=== PATIENT | male | born 1950 | race Caucasian/White ===

== ENCOUNTER 2016-11-21 22:39 | Emergency (ER) | payer MEDICARE ==
[~2016-11-21] VITALS: Ht 177.8 cm; Wt 80.0 kg
[~2016-11-21 22:39] MED LIST: LEVO.125 PO; LITH300C2 PO; PROP20TA3 PO; ROBA750T3 PO; WELL150T PO
[2016-11-21 22:41] VITALS: BP 184/94; PULSE 92; RESP 18; TEMP 98.3; O2SAT 96
[2016-11-22] MEDS ORDERED: LITH300C2 PO (00:26)
--- NOTE | 2016-11-22 00:48 | PD ---
HPI Chief Complaint: ENT Complaint Time Seen by Provider: 00:43 Travel History International Travel<30 days: No Contact w/Intl Traveler<30days: No Traveled to known affect area: No History of Present Illness HPI Patient comes in complaining of sore throat and possible Valium withdrawal. Patient states he been having a sore throat ongoing for approximately a week. Patient denies anything making it better or worse. Denies any fevers, difficulty swallowing nausea, vomiting, chest pain, shortness breath, neck pain , or headaches with this. Patient states he's been using [id number] medications with no improvement of symptoms. Patient states he was on Valium for 2 months last dose was 3 weeks ago and has felt like "crap" since. Patient states his daughter did research and is concerned that he might be going through benzo withdrawals. PFSH Past Medical History Autoimmune Disease: No Blood Disorders: No Bipolar Disorder: Yes Anxiety: Yes Depression: Yes Cancer: No Chemotherapy: No Diabetes: Yes Diminished Hearing: No Endocrine: No Glaucoma: No Hepatitis: Yes (Hep C) Immune Disorder: No Implanted Vascular Access Dvce: No Psychiatric: Yes (BIPOLAR) Immunizations Current: Yes Radiation Therapy: No Sickle Cell Disease: No Thyroid Disease: Yes Tetanus Vaccination: < 5 Years Influenza Vaccination: No PNEUMOCCOCAL Vaccine (Year): 2010 Past Surgical History Abdominal Surgery: No AICD: No Arteriovenous Shunt: No Cardiac Surgery: No Ear Surgery: No Endocrine Surgery: No Eye Surgery: No Genitourinary Surgery: No Insulin Pump: No Joint Replacement: No Oral Surgery: Yes (4 permanent teeth on top and 2 on top placed) Pacemaker: No Thoracic Surgery: No Tonsillectomy: Yes Social History Alcohol Use: No Tobacco Use: Yes (1/2PPD) Substance Use: Yes (HX OF HEROIN ABUSE) Allergies-Medications (Allergen,Severity, Reaction): Uncoded Allergies: NO NARCOTICS (Adverse Reaction, Severe, 02/11/15) PT HAS ADDICTION ISSUES Reported Meds & Prescriptions Reported Meds & Active Scripts Active Clonidine (Clonidine HCl) 0.1 Mg Tab 0.1 Mg PO BID PRN Reported [place] Carbonate 300 Mg Cap 300 Mg PO TID Review of Systems Except as stated in HPI: all other systems reviewed are Neg Physical Exam Narrative GENERAL: Well-developed, well nourished, in no acute distress, and non-ill appearing. SKIN: Warm and dry. HEAD: Atraumatic. Normocephalic. EYES: Pupils equal and round. EOMI. No scleral icterus. No injection or drainage. ENT: No nasal bleeding or discharge. Mucous membranes pink and moist. Tympanic membranes pearly ocasio bilaterally. Posterior pharynx of erythematous without exudate. Uvula is midline. No tenderness to facial sinus to palpation. Patient speaking in full sentences and swallowing own saliva. NECK: Trachea midline. No cervical lymphadenopathy. Supple. No nuclear rigidity. CARDIOVASCULAR: Regular rate and rhythm. No murmur appreciated. RESPIRATORY: No accessory muscle use. No respiratory distress. Clear to auscultation. Breath sounds equal bilaterally. MUSCULOSKELETAL: No obvious deformities. No clubbing. No cyanosis. No edema. Full range of motion. NEUROLOGICAL: Awake and alert. No obvious cranial nerve deficits. Motor grossly within normal limits. Normal speech. PSYCHIATRIC: Appropriate mood and affect; insight and judgment normal. Data Data Last Documented VS Vital Signs Date Time Temp Pulse Resp B/P Pulse Ox O2 Delivery O2 Flow Rate FiO2 11/22/16 00:26 16 11/21/16 22:41 98.3 92 184/94 96 Orders Group A Rapid Strep Screen (11/22/16 00:25) Strep Culture (Group A) (11/22/16 00:45) MDM Medical Decision Making Medical Screen Exam Complete: Yes Emergency Medical Condition: Yes Differential Diagnosis Strep pharyngitis, viral pharyngitis, allergies, other Narrative Course Patient looks great, non-ill appearing. The patient is tolerating fluids and is well hydrated. Appears viral pharyngitis with viral symptom complex. No clinical evidence by history or evaluation to suspect meningitis and/or sepsis. There was no evidence to suggest peritonsillar abscess or retropharyngeal abscess. I discussed with the patient, diagnosis, plan of care and to follow up with the patients primary physician. The patient was instructed to return if the worsens in anyway, especially if not tolerating fluids, increased pain or swelling, difficulty swallowing or breathing, or as needed. The patient agreed with plan. Patient in no obvious distress upon re-evaluation. All pertinent laboratory result(s) discussed with patient. Discussed patient with Dr. Jarvis prior to discharge regarding concerns of possible benzo withdrawal. Dr. Emmanuel saw and evaluate the patient and wrote him a prescription for clonidine. Any questions/concerns in reference to patient diagnosis/condition discussed and clarified prior to patient's discharge. Reinforced sheer importance of close follow up with patient's primary physician or primary care clinic. Instructed patient to return to ED immediately, if symptoms return/worsen. Pt showed understanding of above instructions. Further instructions and recommendations were detailed in discharge paperwork. Pt ambulated without difficulty out of ED at discharge. Diagnosis Primary Impression: Pharyngitis Qualified Code: J02.9 - Pharyngitis, unspecified etiology Additional Impression: Anxiety Referrals: Ear / Nose / Throat Specialist Primary Care Physician Analy [facility] Patient Instructions: Anxiety (ED), General Instructions, Pharyngitis (ED) Additional Instructions: Follow-up with your primary care physician, ENT, and [facility] this week for reevaluation. Take all medication as prescribed. Return to the emergency department if symptoms get worse. Med/Other Pt SpecificInfo: Prescription(s) given Scripts Clonidine 0.1 Mg Tab0.1 Mg PO BID PRN (ANXIETY AND/OR AGITATION) #20 TAB Ref 0 Prov:Rupesh Jarvis MD 11/22/16 Disposition: 01 DISCHARGE HOME Condition: Stable Conor Jacinto Nov 22, 2016 00:48
[2016-11-22] MEDS ORDERED: CLON0.1T PO (02:05)
== END 2016-11-22 02:18 | disposition home or self-care (01) ==
LOC: NEPB 22:39
DX: J02.9 Acute pharyngitis, unspecified (principal); E11.9 Type 2 diabetes mellitus without complications; B19.20 Unspecified viral hepatitis C without hepatic coma; E07.9 Disorder of thyroid, unspecified; F17.210 Nicotine dependence, cigarettes, uncomplicated
CPT/HCPCS: 87081; 87880; 99283

== ENCOUNTER 2017-07-29 22:32 | Emergency (ER) | payer MEDICARE, MEDICAID ==
[~2017-07-29] VITALS: Ht 177.8 cm; Wt 77.0 kg
[~2017-07-29 22:32] MED LIST changes: +CLON0.1T PO; -LEVO.125 PO; -PROP20TA3 PO; -ROBA750T3 PO; -WELL150T PO
[2017-07-29 23:13] VITALS: BP 138/84; PULSE 90; RESP 15; TEMP 98.1; O2SAT 100
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
[2017-07-30] MEDS ORDERED: LIDOCAINE 1%/EPINEPHrine 1:100,000 SOLN 50 ML VIAL INFIL ONE (00:15)
--- NOTE | 2017-07-30 00:28 | RADRPT ---
EXAM DATE/TIME: 07/30/2017 00:06 [place] COMPARISON: CT BRAIN W/O CONTRAST, August 05, 2014, 17:29. CT BRAIN W/O CONTRAST, October 15, 2014, 19:49. INDICATIONS : Trauma, fall. RADIATION DOSE: 56.35 CTDIvol (mGy) MEDICAL HISTORY : Hypertension. Diabetes mellitus type 2. Hepatitis C. SURGICAL HISTORY : None. ENCOUNTER: Initial ACUITY: 1 day PAIN SCALE: 4/10 LOCATION: cranial TECHNIQUE: Multiple contiguous axial images were obtained of the head. Using automated exposure control and adj ustment of the mA and/or kV according to patient size, radiation dose was kept as low as reasonably a chievable to obtain optimal diagnostic quality images. DICOM format image data is available electro nically for review and comparison. FINDINGS: CEREBRUM: The ventricles are normal for age. No evidence of midline shift, mass lesion, hemorrhage or acute in farction. No extra-axial fluid collections are seen. POSTERIOR FOSSA: The cerebellum and brainstem are intact. The 4th ventricle is midline. The cerebellopontine angle i s unremarkable. EXTRACRANIAL: Focal soft tissue laceration and hematoma seen in the right superolateral periorbital region. 2.2 cm partly calcified mass in the upper right jugulodigastric region is long-term stable. 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 SKULL: The calvaria is intact. No evidence of skull fracture. CONCLUSION: 1. No bleed or other acute intracranial abnormality. 2. Right supraorbital soft tissue laceration and small hematoma. 3. Long-term stable partly calcified right jugulodigastric mass. Tahir Keys MD on July 30, 2017 at 0:24 Board Certified Radiologist. This report was verified electronically.
== END 2017-07-30 01:05 | disposition home or self-care (01) ==
LOC: NEPD 22:32
DX: S01.81XA Laceration without foreign body of other part of head, initial encounter (principal); F03.90 Unspecified dementia, unspecified severity, without behavioral disturbance, psychotic disturbance, mood disturbance, and anxiety; F31.9 Bipolar disorder, unspecified; F41.9 Anxiety disorder, unspecified; I10 Essential (primary) hypertension; E11.9 Type 2 diabetes mellitus without complications; E07.9 Disorder of thyroid, unspecified; W01.198A Fall on same level from slipping, tripping and stumbling with subsequent striking against other object, initial encounter; Z86.19 Personal history of other infectious and parasitic diseases
CPT/HCPCS: 12013; 70450

== ENCOUNTER 2017-09-10 15:27 | Emergency (ER) | payer MEDICARE, MEDICAID ==
[~2017-09-10] VITALS: Ht 177.8 cm; Wt 78.1 kg
[2017-09-10 15:52] VITALS: BP 179/95; PULSE 68; RESP 16; TEMP 98.3; O2SAT 97
[2017-09-10] MEDS ORDERED: BACT800T5 PO (16:34)
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
[2017-09-15] MEDS ORDERED: WELLTAB39 PO (08:54)
[2017-09-15] MEDS ORDERED: LEVO25TA39 PO (08:56)
== END 2017-09-10 16:51 | disposition home or self-care (01) ==
LOC: PHEFT 15:27
DX: L02.413 Cutaneous abscess of right upper limb (principal); E11.9 Type 2 diabetes mellitus without complications; I10 Essential (primary) hypertension; E07.9 Disorder of thyroid, unspecified; G30.9 Alzheimer's disease, unspecified; F02.80 Dementia in other diseases classified elsewhere, unspecified severity, without behavioral disturbance, psychotic disturbance, mood disturbance, and anxiety; F31.9 Bipolar disorder, unspecified; Z79.82 Long term (current) use of aspirin; Z86.19 Personal history of other infectious and parasitic diseases
CPT/HCPCS: 99283

== ENCOUNTER → 2017-09-15 | Day surgery (SDC) | payer MEDICARE, MEDICAID ==
--- NOTE | 2017-09-14 18:30 | MH ---
cc: JEFF ROWAN DATE OF ADMISSION 09/15/2017 IDENTIFICATION A 67-year-old with base of tongue neoplasm for direct laryngoscopy biopsy. PAST MEDICAL HISTORY Unremarkable PAST SURGICAL HISTORY Unremarkable REVIEW OF SYSTEMS Unremarkable FAMILY HISTORY AND SOCIAL HISTORY Unremarkable PHYSICAL EXAMINATION GENERAL: Well-appearing patient no acute distress noted. HEENT: Exam revealed base of tongue neoplasm. LUNGS: Clear. HEART: Regular rate and rhythm. ABDOMEN: Soft, nontender. EXTREMITIES: Without cyanosis, clubbing or edema. NEUROLOGIC: Alert, oriented, nonfocal neurologic exam. 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 Instructed in the method of surgery and possible complication include anesthetic complications, cardiac difficulty, pulmonary difficulty, stroke or even . Surgical complications bleeding, infection, risk of transfusion, risk of injury to base of tongue with bleeding, loss of airway with tracheostomy. The patient appeared to agree, accept and understand above-mentioned risks and benefits. In addition no guarantees or warranties regarding outcome were given. We will therefore proceed with surgery. MD ORI Felder/ANGELES /5:36 PM /6:17 PM
[~2017-09-15] VITALS: Ht 177.8 cm; Wt 74.1 kg
[~2017-09-15] MED LIST changes: +BACT800T5 PO; +CHLORHEXIDINE GLUCONATE 2 % 1 PACK (2 CLOTHS) TOPICAL PRN; +DEXAMETHASONE SOD PHOS 4 MG/ML VIAL IV ONE; +DO NOT ADM ANY ANTICOAGULANT DRUGS PRN; +LACTATED RINGER'S 1000 ML IV PRN; +LEVO25TA39 PO; +LIDOCAINE HCL 1% PF 5 ML SYRINGE OTHER ONE; +METOPROLOL TARTRATE 25 MG TAB PO PRN; +ONDANSETRON HCL 4 MG/2 ML VIAL IV ONE; +POVIDONE IODINE 5% (ANTISEPSIS KIT) 4 APPLICATIONS EACH NARE PRN; +PROPOFOL 200 MG/20 ML AMP IV ONE; +SODIUM CHLORID 0.9% 500 ML IV PRN; +SUCCINYLCHOLINE CHLORIDE 100 MG/5 ML SYRINGE IV PUSH ONE; +WELLTAB39 PO
[2017-09-15 12:16] VITALS: BP 142/75; PULSE 64; RESP 18; O2SAT 100
--- NOTE | 2017-09-15 16:00 | EKG ---
Date Performed: 09/15/2017 Time Performed: 09:19:15 PTAGE: 67 years EKG: SINUS BRADYCARDIA BORDERLINE ECG PREVIOUS TRACING : 06/26/2014 09.15 Since the prior tracing, nonspecific ST-T wave changes have resolved. DOCTOR: Jami Jeronimo Interpretating Date/Time 09/15/2017 15:59:53
--- NOTE | 2017-09-16 15:54 | MP ---
cc: JEFF ROWAN DATE OF OPERATION 09/15/2017 PREOPERATIVE DIAGNOSIS Base of tongue mass. POSTOPERATIVE DIAGNOSIS Base of tongue mass. PROCEDURE Direct laryngoscopy and biopsy. ANESTHESIA General. ESTIMATED BLOOD LOSS Minimal. COMPLICATIONS No complications. OPERATING SURGEON Dr. Rowan. OPERATION Prepped and draped in usual fashion. Once the patient was intubated the GlideScope was used to gain access to the base of the tongue. A large necrotic mass with ulceration was noted. The mass was biopsied multiple times with upbiting forceps with the GlideScope visualization. No other lesions were noted. The neck was palpated, no masses. Patient tolerated procedure well. MD ORI Felder/DEISY /7:43 AM /3:40 PM
== END | disposition home or self-care (01) ==
LOC: HSDC 07:59
PROVIDERS: ATTEND Specialist
DX: C01 Malignant neoplasm of base of tongue (principal); I10 Essential (primary) hypertension; R94.31 Abnormal electrocardiogram [ECG] [EKG]
CPT/HCPCS: 88305; 93005; J0330; J1100; J2405; J3010

== ENCOUNTER 2018-01-13 21:01 | Emergency (ER) | payer MEDICARE, MEDICAID ==
[~2018-01-13] VITALS: Ht 172.7 cm; Wt 60.0 kg
[~2018-01-13 21:01] MED LIST changes: -CHLORHEXIDINE GLUCONATE 2 % 1 PACK (2 CLOTHS) TOPICAL PRN; -CLON0.1T PO; -DEXAMETHASONE SOD PHOS 4 MG/ML VIAL IV ONE; -DO NOT ADM ANY ANTICOAGULANT DRUGS PRN; -LACTATED RINGER'S 1000 ML IV PRN; -LIDOCAINE HCL 1% PF 5 ML SYRINGE OTHER ONE; -METOPROLOL TARTRATE 25 MG TAB PO PRN; -ONDANSETRON HCL 4 MG/2 ML VIAL IV ONE; -POVIDONE IODINE 5% (ANTISEPSIS KIT) 4 APPLICATIONS EACH NARE PRN; -PROPOFOL 200 MG/20 ML AMP IV ONE; -SODIUM CHLORID 0.9% 500 ML IV PRN; -SUCCINYLCHOLINE CHLORIDE 100 MG/5 ML SYRINGE IV PUSH ONE
[2018-01-13 21:21] VITALS: BP 132/59; PULSE 67; RESP 16; TEMP 98.5; O2SAT 100
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
== END 2018-01-13 22:18 | disposition home or self-care (01) ==
LOC: NEDAMB 21:01
DX: F11.20 Opioid dependence, uncomplicated (principal); C02.9 Malignant neoplasm of tongue, unspecified; G30.9 Alzheimer's disease, unspecified; F02.80 Dementia in other diseases classified elsewhere, unspecified severity, without behavioral disturbance, psychotic disturbance, mood disturbance, and anxiety; F31.9 Bipolar disorder, unspecified; F41.9 Anxiety disorder, unspecified; B19.20 Unspecified viral hepatitis C without hepatic coma; I10 Essential (primary) hypertension; Z79.82 Long term (current) use of aspirin; Z86.73 Personal history of transient ischemic attack (TIA), and cerebral infarction without residual deficits
CPT/HCPCS: 99282

== ENCOUNTER 2018-01-15 10:41 | Inpatient (IN) | payer MEDICARE, MEDICAID ==
[~2018-01-15] VITALS: Ht 175.3 cm; Wt 60.0 kg
[2018-01-15 10:51] VITALS: BP 107/57; PULSE 77; RESP 18; TEMP 98.2; O2SAT 83
[2018-01-15] MEDS ORDERED: LIDOCAINE VISCOUS 2% SOLN 15 ML UDC PO ONE (11:30)
[2018-01-15] MEDS ORDERED: MORPHINE SULFATE 4 MG/ML INJ IV PUSH ONE ×2 (11:30→14:30)
[2018-01-15] MEDS ORDERED: OXYC-396 PO (11:46)
[2018-01-15] MEDS ORDERED: MAGICADU2 SWISH-SWAL (11:46)
[2018-01-15] MEDS ORDERED: ZOLO50TA PO (11:46)
[2018-01-15] MEDS ORDERED: NEUR400C PO (11:46)
[2018-01-15] MEDS ORDERED: PLAV75TA29 PO (11:46)
[2018-01-15] MEDS ORDERED: LITH450T PO (11:46)
[2018-01-15] MEDS ORDERED: HALO5TAB PO (11:46)
[2018-01-15] MEDS ORDERED: BUPR8SUB SL (11:46)
[2018-01-15 12:35] VITALS: BP 139/68; PULSE 68; RESP 18; O2SAT 100
[2018-01-15 12:42] LABS: AUTOMATED NEUTROPHIL # 1.6 TH/MM3 (1.8-7.7); BASOPHIL % 0.3 % (0.0-2.0); EOSINOPHIL % 0.4 % (0.0-4.0); HEMATOCRIT 22.9 % (39.0-51.0); LYMPH % 16.5 % (9.0-44.0); LYMPHOCYTE # 0.4 TH/MM3 (1.0-4.8); MEAN CELL VOLUME 100.1 FL (80.0-100.0); MONO % 10.8 % (0.0-8.0); MONOCYTE # 0.2 TH/MM3 (0-0.9); PLATELET COUNT 78 TH/MM3 (150-450); RED BLOOD COUNT 2.29 MIL/MM3 (4.50-5.90); RED CELL DISTRIBUTION WIDTH 23.4 % (11.6-17.2); WHITE BLOOD COUNT 2.2 TH/MM3 (4.0-11.0)
[2018-01-15 13:05] LABS: ALBUMIN 3.7 GM/DL (3.4-5.0); ALT (GPT) 19 U/L (12-78); AST (GOT) 14 U/L (15-37); BICARBONATE 26.6 MEQ/L (21.0-32.0); BLOOD UREA NITROGEN 22 MG/DL (7-18); CALCIUM 10.7 MG/DL (8.5-10.1); CHLORIDE 109 MEQ/L (98-107); CREATININE 0.96 MG/DL (0.60-1.30); GLOMERULAR FILTRATION RATE 78 ML/MIN (>89); GLUCOSE,RANDOM 98 MG/DL (74-106); SODIUM (NA) 141 MEQ/L (136-145)
[2018-01-15 13:07] LABS: ALKALINE PHOSPHATASE 72 U/L (45-117); TOTAL BILIRUBIN ADULT 0.6 MG/DL (0.2-1.0); TOTAL PROTEIN 7.2 GM/DL (6.4-8.2)
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
[2018-01-15 14:56] VITALS: BP 117/56; PULSE 71; RESP 18; O2SAT 99
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
[2018-01-15] MEDS ORDERED: SODIUM CHLORIDE 0.9% FLUSH 10 ML FLUSH IV FLUSH PRN (16:30)
[2018-01-15] MEDS ORDERED: ONDANSETRON HCL 4 MG/2 ML VIAL IVP PRN (16:30)
[2018-01-15] MEDS ORDERED: NALOXONE HCL 0.4 MG/ML AMP IV PUSH PRN (16:30)
[2018-01-15] MEDS ORDERED: ACETAMINOPHEN 325 MG TAB PO PRN (16:30)
[2018-01-15] MEDS: ENOXAPARIN SODIUM 40 MG/0.4 ML SYRINGE SQ SCH (17:29)
[2018-01-15 17:31] VITALS: BP 163/70; PULSE 80; RESP 18; O2SAT 95
[2018-01-15] MEDS ORDERED: MORPHINE SULFATE 2 MG/ML SYRINGE IV PUSH PRN (18:45)
[2018-01-15] MEDS: MORPHINE SULFATE 2 MG/ML SYRINGE IV PUSH PRN ×2 (19:22→22:18)
[2018-01-15] MEDS: SODIUM CHLORIDE 0.9% FLUSH 10 ML FLUSH IV FLUSH SCH (19:23)
[2018-01-15 20:25] VITALS: BP 161/75; PULSE 70; RESP 17; TEMP 98.9; O2SAT 98
[2018-01-15] MEDS: HALOPERIDOL 5 MG TAB PO SCH (20:41)
[2018-01-15] MEDS: LITHIUM CARBONATE 450 MG CONTROLLED RELEASE TAB PO SCH (20:41)
[2018-01-15] MEDS: NYSTAT/DIPHENHY/LIDO MOUTHWASH (Adult) 120ML SWISH-SWAL SCH (20:41)
[2018-01-15] MEDS: BUPRENORPHINE HCL 8 MG SUBLINGUAL TAB SL SCH (20:41)
[2018-01-15] MEDS: GABAPENTIN 400 MG CAP PO SCH (20:41)
[2018-01-16 00:15] VITALS: BP 96/50; PULSE 55; RESP 17; TEMP 97.7; O2SAT 99
[2018-01-16] MEDS: MORPHINE SULFATE 2 MG/ML SYRINGE IV PUSH PRN ×5 (03:17→16:46)
[2018-01-16 04:15] VITALS: BP 109/56; PULSE 61; RESP 16; TEMP 97.7; O2SAT 98
[2018-01-16] MEDS: NYSTAT/DIPHENHY/LIDO MOUTHWASH (Adult) 120ML SWISH-SWAL SCH ×4 (06:33→22:34)
[2018-01-16 08:00] VITALS: BP 119/62; PULSE 56; RESP 19; TEMP 97.7; O2SAT 99
[2018-01-16 08:58] LABS: AUTOMATED NEUTROPHIL # 0.6 TH/MM3 (1.8-7.7); BASOPHIL % 0.1 % (0.0-2.0); EOSINOPHIL % 1.1 % (0.0-4.0); HEMATOCRIT 22.4 % (39.0-51.0); HEMOGLOBIN 7.8 GM/DL (13.0-17.0); LYMPHOCYTE # 0.7 TH/MM3 (1.0-4.8); MEAN CORPUSCULAR HEMOGLOBIN 35.5 PG (27.0-34.0); MEAN CORPUSCULAR HGB CONC 34.7 % (32.0-36.0); MEAN PLATELET VOLUME 9.1 FL (7.0-11.0); MONO % 12.6 % (0.0-8.0); MONOCYTE # 0.2 TH/MM3 (0-0.9); NEUT % 40.2 % (16.0-70.0); PLATELET COUNT 72 TH/MM3 (150-450); RED BLOOD COUNT 2.19 MIL/MM3 (4.50-5.90); RED CELL DISTRIBUTION WIDTH 23.8 % (11.6-17.2); WHITE BLOOD COUNT 1.4 TH/MM3 (4.0-11.0)
[2018-01-16] MEDS: HALOPERIDOL 5 MG TAB PO SCH ×2 (09:00→22:35)
[2018-01-16] MEDS: CLOPIDOGREL 75 MG TAB PO SCH (09:01)
[2018-01-16] MEDS: GABAPENTIN 400 MG CAP PO SCH ×2 (09:01→22:35)
[2018-01-16] MEDS: BUPRENORPHINE HCL 8 MG SUBLINGUAL TAB SL SCH (09:01)
[2018-01-16] MEDS: LITHIUM CARBONATE 450 MG CONTROLLED RELEASE TAB PO SCH ×2 (09:03→22:35)
[2018-01-16] MEDS: SERTRALINE HCL 50 MG TAB PO SCH (09:03)
[2018-01-16] MEDS: SODIUM CHLORIDE 0.9% FLUSH 10 ML FLUSH IV FLUSH SCH ×2 (09:04→22:36)
[2018-01-16 09:15] LABS: ALBUMIN 3.4 GM/DL (3.4-5.0); AST (GOT) 14 U/L (15-37); BICARBONATE 27.4 MEQ/L (21.0-32.0); BLOOD UREA NITROGEN 19 MG/DL (7-18); CALCIUM 10.7 MG/DL (8.5-10.1); CHLORIDE 111 MEQ/L (98-107); CREATININE 0.91 MG/DL (0.60-1.30); GLOMERULAR FILTRATION RATE 83 ML/MIN (>89); GLUCOSE,RANDOM 77 MG/DL (74-106); SODIUM (NA) 143 MEQ/L (136-145)
[2018-01-16 09:16] LABS: ALT (GPT) 16 U/L (12-78)
[2018-01-16 09:19] LABS: ALKALINE PHOSPHATASE 66 U/L (45-117); TOTAL BILIRUBIN ADULT 0.4 MG/DL (0.2-1.0); TOTAL PROTEIN 6.8 GM/DL (6.4-8.2)
[2018-01-16 10:15] LABS: BANDS 1 % (0-6); LYMPHOCYTES 54 % (9-44); MONOCYTES 16 % (0-8); POLYS (SEG NEUTROPHILS) 29 % (16-70)
[2018-01-16 10:19] LABS: NEUTROPHIL # MANUAL DIFF 0.4 TH/MM3 (1.8-7.7)
[2018-01-16 12:00] VITALS: BP 107/55; PULSE 59; RESP 17; TEMP 98.2; O2SAT 99
--- NOTE | 2018-01-16 12:10 | HHI.HP ---
[facility] Service Family Medicine Primary Care Physician Colin Mcgarry M.D. Admission Diagnosis intractable pain, difficulty swallowing Diagnoses: (1) Intractable pain Diagnosis: Principal (2) Radiation burn Diagnosis: Principal (3) Bipolar affective disorder, rapid cycling Diagnosis: Principal (4) FEN Diagnosis: Principal International Travel<30 Days: No Contact w/Intl Traveler<30days: No Known Affected Area: No History of Present Illness Mr. Lewis is a 68-year-old white male with a past medical history of bipolar disorder and oropharyngeal cancer presenting to the ED due to pain in his tongue and throat. He was first diagnosed with oropharyngeal cancer in September. He just finished 3 months of chemotherapy and radiation 2 days ago per his report. He states that his mouth is on fire from the radiation gomez. Specifically located on his tongue and in the back of his throat. Dr. Walton is his radiation oncologist and Dr. De Paz is his oncologist for his chemotherapy. He states that he first went to the hospital in [facility] and then was sent here. He is currently awaiting a special compounded formula for his gomez that is to be picked up on Tuesday from some pharmacy. He usually has a full liquid diet. He is a difficult historian because he doesn't follow a clear thread in giving the history so some history is obtained from the chart. His speech is somewhat pressured at this time. "I called Lionel and Lionel, you know who that is from the radio and I'm going to be laughing at you all." He couldn't remember his brother's phone number where he had been living recently. He reports being a narcotics addict in the past but having long periods where he was clean. he complains about pain in his throat and pain with eating and has been offered a PEG tube multiple times but keeps refusing. "Those things get infected! Have you seen those get infected?" Right now with his pain, there is not much that can be done except strong pain meds like narcotics plus topical treatments. Mr Lewis wants narcotics at this point and feels better with his pain. He probably got much worse because he stopped his pain meds. Unfortunately, he is stuck with a very painful throat for weeks. He was trying to come off narcotics over the past week and has been having more pain since then. He was last hospitalized for Psychiatric problems in October. He was on multiple meds. Have consulted Psychiatry as he seems like he could benefit from some adjustment in his meds right now. 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 It was repeatedly explained that he was not being escorted out of the hospital by security right now but he is very angry with the ED staff that "lies all the time." "I'm writing a big report about everything that happened and you will all be in trouble." Review of Systems ROS Limitations: Poor Historian Gastrointestinal: COMPLAINS OF: Difficulty Swallowing, Anorexia, DENIES: Diarrhea Psychiatric: COMPLAINS OF: Confusion, Agitation Other ROS Limitations: Uncooperative, Combative Constitutional: DENIES: Fever, Chills Ears, nose, mouth, throat: COMPLAINS OF: Throat pain Past Family Social History Past Medical History Hearing loss Alzheimer disease Bipolar disorder Hepatitis C Benign brain tumor Past Surgical History tonsillectomy Allergies: Coded Allergies: No Known Allergies (Unverified , 01/13/18) Family History Long family history of bipolar and schizophrenia Social History History of heroin and IV drug abuse Physical Exam Vital Signs Vital Signs Date Time Temp Pulse Resp B/P (MAP) Pulse Ox O2 Delivery O2 Flow Rate FiO2 01/16/18 08:00 97.7 56 19 119/62 (81) 99 01/16/18 04:15 97.7 61 16 109/56 (73) 98 01/16/18 00:15 97.7 55 17 96/50 (65) 99 01/15/18 20:25 98.9 70 17 161/75 (103) 98 01/15/18 18:47 01/15/18 17:31 80 18 163/70 (101) 95 Room Air 01/15/18 14:56 71 18 117/56 (76) 99 Room Air 01/15/18 12:35 68 18 139/68 (91) 100 Room Air Physical Exam GENERAL: This is a cachectic white male patient, angry and cursing in the ED. SKIN: No rashes, ecchymoses or lesions. Cool and dry. HEAD: Atraumatic. Normocephalic. EYES: Pupils equal round and reactive. Extraocular motions intact. No scleral icterus. No injection or drainage. ENT: Nose without bleeding, purulent drainage or septal hematoma. Throat without erythema, tonsillar hypertrophy or exudate. Uvula midline. Airway patent. Lesion underneath tongue, unable to assess lesion at back of throat NECK: Trachea midline. No JVD or lymphadenopathy. Supple, nontender CARDIOVASCULAR: Regular rate and rhythm without murmurs, gallops, or rubs. RESPIRATORY: Clear to auscultation. Breath sounds equal bilaterally. No wheezes , rales, or rhonchi. GASTROINTESTINAL: Abdomen soft, non-tender, nondistended. No hepato-splenomegaly , or palpable masses. No guarding. MUSCULOSKELETAL: Extremities without clubbing, cyanosis, or edema. No joint tenderness, effusion, or edema noted. No calf tenderness. NEUROLOGICAL: Awake and alert. Motor and sensory grossly within normal limits. pressured speech. Laboratory Laboratory Tests Test 01/15/18 12:30 01/16/18 08:17 White Blood Count 2.2 1.4 Red Blood Count 2.29 2.19 Hemoglobin 8.0 7.8 Hematocrit 22.9 22.4 Mean Corpuscular Volume 100.1 102.0 Mean Corpuscular Hemoglobin 35.0 35.5 Mean Corpuscular Hemoglobin Concent 35.0 34.7 Red Cell Distribution Width 23.4 23.8 Platelet Count 78 72 Mean Platelet Volume 9.0 9.1 Neutrophils (%) (Auto) 72.0 40.2 Lymphocytes (%) (Auto) 16.5 46.0 Monocytes (%) (Auto) 10.8 12.6 Eosinophils (%) (Auto) 0.4 1.1 Basophils (%) (Auto) 0.3 0.1 Neutrophils # (Auto) 1.6 0.6 Lymphocytes # (Auto) 0.4 0.7 Monocytes # (Auto) 0.2 0.2 Eosinophils # (Auto) 0.0 0.0 Basophils # (Auto) 0.0 0.0 CBC Comment AUTO DIFF AUTO DIFF Differential Comment AUTO DIFF CONFIRMED FINAL DIFF MANUAL Platelet Estimate LOW LOW Platelet Morphology Comment NORMAL NORMAL Blood Urea Nitrogen 22 19 Creatinine 0.96 0.91 Random Glucose 98 77 Total Protein 7.2 6.8 Albumin 3.7 3.4 Calcium Level 10.7 10.7 Alkaline Phosphatase 72 66 Aspartate Amino Transf (AST/SGOT) 14 14 Alanine Aminotransferase (ALT/SGPT) 19 16 Total Bilirubin 0.6 0.4 Sodium Level 141 143 Potassium Level 3.8 4.6 Chloride Level 109 111 Carbon Dioxide Level 26.6 27.4 Anion Gap 5 5 Estimat Glomerular Filtration Rate 78 83 Differential Total Cells Counted 100 Neutrophils % (Manual) 29 Band Neutrophils % 1 Lymphocytes % 54 Monocytes % 16 Neutrophils # (Manual) 0.4 Result Diagram: 01/16/1881601/16/18816 Caprini VTE Risk Assessment Caprini VTE Risk Assessment: Mod/High Risk (score >= 2) Caprini Risk Assessment Model Point Value = 1 Point Value = 2 Point Value = 3 Point Value = 5 Age 41-60 Minor surgery BMI > 25 kg/m2 Swollen legs Varicose veins or History of unexplained or recurrent spontaneous Oral contraceptives or hormone replacement Sepsis (< 1 month) Serious lung disease, including pneumonia (< 1 month) Abnormal pulmonary function Acute myocardial infarction Congestive heart failure (< 1 month) History of inflammatory bowel disease Medical patient at bed rest Age 61-74 Arthroscopic surgery Major open surgery (> 45 min) Laparoscopic surgery (> 45 min) Malignancy Confined to bed (> 72 hours) Immobilizing plaster cast Central venous access Age >= 75 History of VTE Family history of VTE Factor V Leiden Prothrombin [id number] Lupus anticoagulant Anticardiolipin antibodies Elevated serum homocysteine Heparin-induced thrombocytopenia Other congenital or acquired thrombophilia Stroke (< 1 month) Elective arthroplasty Hip, pelvis, or leg fracture Acute spinal cord injury (< 1 month) Prophylaxis Regimen Total Risk Factor Score Risk Level Prophylaxis Regimen 0-1 Low Early ambulation 2 Moderate Order ONE of the following: *Sequential Compression Device (SCD) *Heparin 5000 units SQ BID 3-4 Higher Order ONE of the following medications: *Heparin 5000 units SQ TID *Enoxaparin/Lovenox 40 mg SQ daily (WT < 150 kg, CrCl > 30 mL/min) *Enoxaparin/Lovenox 30 mg SQ daily (WT < 150 kg, CrCl > 10-29 mL/min) *Enoxaparin/Lovenox 30 mg SQ BID (WT < 150 kg, CrCl > 30 mL/min) AND/OR *Sequential Compression Device (SCD) 5 or more Highest Order ONE of the following medications: *Heparin 5000 units SQ TID (Preferred with Epidurals) *Enoxaparin/Lovenox 40 mg SQ daily (WT < 150 kg, CrCl > 30 mL/min) *Enoxaparin/Lovenox 30 mg SQ daily (WT < 150 kg, CrCl > 10-29 mL/min) *Enoxaparin/Lovenox 30 mg SQ BID (WT < 150 kg, CrCl > 30 mL/min) AND *Sequential Compression Device (SCD) Assessment and Plan Assessment and Plan 68-year-old white male with past medical history of oropharyngeal cancer presenting with intractable throat/tongue pain. Will be admitted to our inpatient service for pain control and management as well as help with his diet to keep him from losing more weight Problem List: (1) Intractable pain ICD Codes: R52 - Pain, unspecified Status: Acute Plan: Patient presented with intractable pain from radiation gomez to the throat and along. He finishes radiation therapy 2 days ago. Pain management with IV morphine and Magic mouthwash he refuses any feeding tube which could help him keep his weight stable. will work on a po regimin for pain control until he is stable and improved (2) Radiation burn ICD Codes: T30.0 - Burn of unspecified body region, unspecified degree Status: Acute Plan: Patient just finished undergoing 3 months of chemotherapy and radiation therapy. -Consult radiation oncology, patient is known to Dr. Walton -Consult medical oncology, patient is known to Dr. De Paz. he is neutropenic (3) Bipolar affective disorder, rapid cycling ICD Codes: F31.9 - Bipolar affective disorder, rapid cycling Status: Chronic Plan: Patient with history of bipolar disorder with a previous hospitalization in October 2014. -Continue at home medication of haloperidol 5 mg p.o. twice daily, lithium 450 mg p.o. twice daily, gabapentin 400 mg p.o. twice daily, sertraline 50 mg p.o. daily -Consult psychiatry, appreciate recommendations, due to patient's aggressive behavior may be underlying depressive episode vs worsening bipolar (4) FEN Status: Acute Plan: Fluids: tolerating PO Electrolytes: monitor and replete as needed Nutrition: Full liquid diet DVT Prophylaxis: Early ambulation. Lovenox 40mg subQ q24hr GI Prophylaxis: None indicated at this time Pain management: See above Shahrzad Sanon MD Jan 16, 2018 12:10
--- NOTE | 2018-01-16 12:12 | MB ---
cc: Tacho Monae MD DATE: 01/16/2018 [facility] #: [id number] REASON FOR CONSULTATION: This gentleman completed external beam radiation treatment with chemotherapy for a head and neck cancer on 01/05/2018 and he was admitted to the hospital complaining of severe oropharyngeal pain and an inability to manage it. Since being in the hospital with conservative management and IV fluids, he appears to be doing much better. He has declined placement of a PEG tube. HISTORY OF PRESENT ILLNESS: This gentleman indicates that he has had a manic depressive disorder for years. His pain in his throat was poorly managed on an outpatient basis and it would appear that he needed some relief. Nevertheless, he is declining consideration for a PEG tube and wants to manage on his own. He believes that they are bringing him an oropharyngeal solution to rinse and swallow and he is hopeful that this will help his symptomatology. PAST MEDICAL AND SURGICAL HISTORY: 1. 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 2. Alzheimer's. 3. Hepatitis C. 4. Vasectomy. 5. Bipolar disorder. MEDICATIONS: Prior to initiation of treatment included -[place] and Wellbutrin. ALLERGIES: NONE KNOWN. REVIEW OF SYSTEMS: This gentleman complains of significant oropharyngeal pain. Certainly since the end of November to the beginning of he had lost approximately 4 kg or roughly 9 pounds. He is using oral supplements. He is also using a Duragesic patch. He has declined use of a PEG tube. PHYSICAL EXAMINATION: HEAD AND NECK: There was no jaundice. His conjunctivae and eyelids were normal. Inspection of his oral cavity reveals visible radiation changes, dry mouth, but no clear evidence of thrush. He has a dark skin on his neck from his radiation, but no palpable adenopathy. LUNGS: Clear. HEART: Sounds were normal. There are no abdominal masses or tenderness. EXTREMITIES: No ankle swelling. Power, tone and gait are normal. GENERAL: This gentleman who is alert and oriented today. He seems to be much better. He is very verbose and seemed to be having his pain managed well. ASSESSMENT AND PLAN: I have explained to him that having just completed treatment, his symptoms can become worse over the week after treatment after which things start to turn around and slowly improve. Nevertheless, his sore throat will only resolve over the next 3-6 weeks, very variable from patient to patient. He is encouraged to drink fluids and particularly to maintain his nutrition as much as possible. Of course, the PEG tube would be a consideration, but he has declined this. They are going to be supplying him with an oral solution, which I anticipate is a form of Magic Mouthwash, which I would encourage him to use. We have discussed the fact that he will have a dry mouth, likely for his lifetime, but we do hope his taste will improve over the next several months. At this point, supportive care is what we recommend. He seems to be getting this adequately at the present time as they are doing an excellent job in the hospital. With that in mind, we have no further suggestions for him and we will see him as necessary. MD CARLIE Mcneal/STORM , 11:49 AM , 12:11 PM
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
[2018-01-16 16:00] VITALS: BP 126/58; PULSE 62; RESP 17; TEMP 98.2; O2SAT 100
[2018-01-16] MEDS: ENOXAPARIN SODIUM 40 MG/0.4 ML SYRINGE SQ SCH (16:47)
[2018-01-16 21:00] VITALS: BP 85/58; PULSE 59; RESP 15; TEMP 98.2; O2SAT 93
[2018-01-16] MEDS ORDERED: SODIUM CHLORID 0.9% 500 ML INJ 500 ML IV ONE (22:15)
--- NOTE | 2018-01-16 22:54 | HHI.PR ---
Addendum to Inpatient Note Addendum Reason: Additional Documentation Additional Information S: Resident team paged at 2200 by nursing staff. They report that the patient had decreased blood pressure in the 80s/60s, no fever, and the patient was more lethargic today than he had been in the past, otherwise did state the patient has no new complaints. Upon interview the patient is A&O3. He states he currently does not feel any different. Denies nausea, vomiting, fever, chills, chest pain, shortness of breath, left arm or jaw pain, lightheadedness, dizziness, changes in vision, abdominal pain, changes in urination or bowel habits. Both he and his nurse report that he has been tolerating his full liquid diet well. The patient reports that he has a history of sobriety since 1984 from alcohol, and has not withdrawn, however he reports that he is a chronic opioid abuser. Denies visual or auditory hallucinations. He states that he has used many types of opioids including Dilaudid, fentanyl, "whatever is available." Denies nausea, vomiting, diarrhea, flulike symptoms. O: BP: 85/58 P: 59 RR: 15 temp: 98.2 SPO2: 93 on room air Vitals retaken following interview. BP (manually taken): 92/66 P: 68 RR: 18 GENERAL: Laying in bed, lethargic appearing, thin, able to answer questions appropriately, A & O 3, closes his eyes when not answering questions, mild tremor noted in arms. SKIN: Warm and dry. HEAD: Atraumatic. Normocephalic. EYES: Pupils equal, round and constricted ~1-2mm. No scleral icterus. No injection or drainage. ENT: No nasal bleeding or discharge. Mucous membranes pink and moist. NECK: Trachea midline. No JVD. CARDIOVASCULAR: Regular rate and rhythm. RESPIRATORY: No accessory muscle use. Clear to auscultation. Breath sounds equal bilaterally. GASTROINTESTINAL: Abdomen soft, non-tender, nondistended. Hepatic and splenic margins not palpable. MUSCULOSKELETAL: Extremities without clubbing, cyanosis, or edema. No obvious deformities. NEUROLOGICAL: Awake and alert. Cranial nerves II through XII intact. Motor grossly within normal limits. Five out of 5 muscle strength in the arms and legs. Normal speech. Mild ataxia, sluggishness. Currently without focal neurological deficits, or pronator drift. A/P: 68-year-old male with past history of oropharyngeal cancer currently admitted for intractable throat/tongue pain. Notified by nursing staff tonight that the patient has been less active, more lethargic than earlier. Other than apparent lethargy patient notes he is asymptomatic. Patient's sluggishness, tremor and mild ataxia are concerning for potential [place] toxicity. Patient also anemic on admission and may have lethargy 2/2 anemia. -F/U CBC, BMP, EKG, PT/INR -fluid bolus 500 mL NS -hold lithium for now *Addendum: Patient by nursing staff with laboratory results. Patient found to have hemoglobin of 6.8. -Type and screen -Transfuse 2 units irradiated RBC -Hemoccult Willian Stiles MD R1 Jan 16, 2018 22:54
[2018-01-16 23:36] LABS: AUTOMATED NEUTROPHIL # 0.7 TH/MM3 (1.8-7.7); BASOPHIL % 0.2 % (0.0-2.0); EOSINOPHIL % 0.3 % (0.0-4.0); LYMPH % 15.1 % (9.0-44.0); LYMPHOCYTE # 0.2 TH/MM3 (1.0-4.8); MEAN CORPUSCULAR HEMOGLOBIN 34.5 PG (27.0-34.0); MEAN CORPUSCULAR HGB CONC 33.9 % (32.0-36.0); MEAN PLATELET VOLUME 9.1 FL (7.0-11.0); MONO % 19.1 % (0.0-8.0); MONOCYTE # 0.2 TH/MM3 (0-0.9); NEUT % 65.3 % (16.0-70.0); PLATELET COUNT 73 TH/MM3 (150-450); RED BLOOD COUNT 1.97 MIL/MM3 (4.50-5.90); RED CELL DISTRIBUTION WIDTH 23.7 % (11.6-17.2); WHITE BLOOD COUNT 1.1 TH/MM3 (4.0-11.0)
[2018-01-16 23:40] LABS: HEMATOCRIT 20.1 % (39.0-51.0); HEMOGLOBIN 6.8 GM/DL (13.0-17.0)
[2018-01-16 23:42] LABS: PROTHROMBIN TIME - PATIENT 10.6 SEC (9.8-11.6)
[2018-01-17] VITALS (13 sets, daily range): BP systolic 76–115; BP diastolic 39–58; PULSE 54–67; RESP 13–17; TEMP 97.7–98.6; O2SAT 97–100
[2018-01-17] LABS: BICARBONATE 28.6 MEQ/L (21.0-32.0); CALCIUM 9.9 MG/DL (8.5-10.1); CREATININE 1.01 MG/DL (0.60-1.30)
[2018-01-17] MEDS ORDERED: SODIUM CHLOR 0.9% 250 ML INJ 250 ML IV ONE
[2018-01-17] MEDS: FILGRASTIM INJ 300 MCG in DEXTROSE 5% IN WATER INJ 25 ML IV SCH ×4 (00:42→13:46)
[2018-01-17 00:56] LABS: BANDS 30 % (0-6); LYMPHOCYTES 10 % (9-44); METAMYELOCYTES 1 % (0-1); MONOCYTES 15 % (0-8); NEUTROPHIL # MANUAL DIFF 0.8 TH/MM3 (1.8-7.7); POLYS (SEG NEUTROPHILS) 44 % (16-70)
[2018-01-17] MEDS: SODIUM CHLORIDE 0.9% FLUSH 10 ML FLUSH IV FLUSH SCH ×2 (08:25→21:23)
[2018-01-17] MEDS: MORPHINE SULFATE 2 MG/ML SYRINGE IV PUSH PRN (08:25)
[2018-01-17] MEDS: GABAPENTIN 400 MG CAP PO SCH ×2 (08:25→21:22)
[2018-01-17] MEDS: SERTRALINE HCL 50 MG TAB PO SCH (08:25)
[2018-01-17] MEDS: CLOPIDOGREL 75 MG TAB PO SCH (08:25)
[2018-01-17] MEDS: HALOPERIDOL 5 MG TAB PO SCH ×2 (08:25→21:22)
[2018-01-17] MEDS: NYSTAT/DIPHENHY/LIDO MOUTHWASH (Adult) 120ML SWISH-SWAL SCH ×4 (08:26→21:23)
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
[2018-01-17 10:37] LABS: AUTOMATED NEUTROPHIL # 1.1 TH/MM3 (1.8-7.7); BASOPHIL % 0.1 % (0.0-2.0); EOSINOPHIL % 0.5 % (0.0-4.0); HEMATOCRIT 25.5 % (39.0-51.0); HEMOGLOBIN 8.8 GM/DL (13.0-17.0); LYMPHOCYTE # 0.4 TH/MM3 (1.0-4.8); MEAN CELL VOLUME 97.5 FL (80.0-100.0); MEAN CORPUSCULAR HEMOGLOBIN 33.5 PG (27.0-34.0); MEAN CORPUSCULAR HGB CONC 34.4 % (32.0-36.0); MEAN PLATELET VOLUME 8.9 FL (7.0-11.0); MONO % 17.4 % (0.0-8.0); MONOCYTE # 0.3 TH/MM3 (0-0.9); PLATELET COUNT 75 TH/MM3 (150-450); RED BLOOD COUNT 2.62 MIL/MM3 (4.50-5.90); RED CELL DISTRIBUTION WIDTH 22.1 % (11.6-17.2); WHITE BLOOD COUNT 1.9 TH/MM3 (4.0-11.0)
[2018-01-17] MEDS ORDERED: LACTULOSE SYRUP 20 GM/30 ML CUP PO PRN (10:45)
[2018-01-17] MEDS ORDERED: SODIUM CHLOR 0.9% 1000 ML INJ 1,000 ML IV ONE ×2 (10:45→15:45)
[2018-01-17] MEDS ORDERED: BISACODYL 10 MG SUPP RECTAL PRN (10:45)
[2018-01-17] MEDS ORDERED: MAGNESIUM HYDROXIDE SUSP 30 ML CUP PO PRN (10:45)
[2018-01-17 10:51] LABS: ALBUMIN 2.9 GM/DL (3.4-5.0); ALT (GPT) 14 U/L (12-78); AST (GOT) 15 U/L (15-37); BICARBONATE 26.2 MEQ/L (21.0-32.0); BLOOD UREA NITROGEN 20 MG/DL (7-18); CALCIUM 9.9 MG/DL (8.5-10.1); CHLORIDE 110 MEQ/L (98-107); CREATININE 0.98 MG/DL (0.60-1.30); GLOMERULAR FILTRATION RATE 77 ML/MIN (>89); GLUCOSE,RANDOM 79 MG/DL (74-106); IRON (FE) 85 MCG/DL (65-175); SODIUM (NA) 141 MEQ/L (136-145)
[2018-01-17] MEDS: DOCUSATE SODIUM 50 MG/SENNA 8.6 MG TAB PO SCH ×2 (11:10→21:22)
--- NOTE | 2018-01-17 11:13 | PD.ONC.PN ---
Subjective Subjective Remarks --late entry, patient seen at ~10AM Afebrile overnight. patient reports continued mouth and tongue pain. states he is eating as much as possible. reports he did eat breakfast this AM. denies nausea/vomiting. Objective Data Date Time Temp Pulse Resp B/P (MAP) Pulse Ox O2 Delivery O2 Flow Rate FiO2 01/17/18 08:00 98.1 54 17 79/43 (55) 100 01/17/18 05:43 97.8 57 15 77/39 97 01/17/18 05:25 98.1 55 16 76/39 97 01/17/18 05:25 98.1 55 16 76/39 97 01/17/18 02:45 97.8 54 13 81/43 98 01/17/18 02:26 98.6 55 17 78/42 99 01/16/18 21:00 98.2 59 15 85/58 (67) 93 01/16/18 16:00 98.2 62 17 126/58 (80) 100 01/16/18 12:00 98.2 59 17 107/55 (72) 99 01/17/18 01/17/18 01/17/18 07:00 15:00 23:00 Intake Total 956 ml 450 ml Output Total 250 ml Balance 956 ml 200 ml Result Diagram: 01/17/18 1008 01/17/18 1008 Laboratory Results Laboratory Tests Test 01/16/18 13:34 01/16/18 22:53 01/17/18 10:08 [place] Level 0.6 MEQ/L White Blood Count 1.1 TH/MM3 1.9 TH/MM3 Red Blood Count 1.97 MIL/MM3 2.62 MIL/MM3 Hemoglobin 6.8 GM/DL 8.8 GM/DL Hematocrit 20.1 % 25.5 % Mean Corpuscular Volume 102.0 FL 97.5 FL Mean Corpuscular Hemoglobin 34.5 PG 33.5 PG Mean Corpuscular Hemoglobin Concent 33.9 % 34.4 % Red Cell Distribution Width 23.7 % 22.1 % Platelet Count 73 TH/MM3 75 TH/MM3 Mean Platelet Volume 9.1 FL 8.9 FL Neutrophils (%) (Auto) 65.3 % 60.0 % Lymphocytes (%) (Auto) 15.1 % 22.0 % Monocytes (%) (Auto) 19.1 % 17.4 % Eosinophils (%) (Auto) 0.3 % 0.5 % Basophils (%) (Auto) 0.2 % 0.1 % Neutrophils # (Auto) 0.7 TH/MM3 1.1 TH/MM3 Lymphocytes # (Auto) 0.2 TH/MM3 0.4 TH/MM3 Monocytes # (Auto) 0.2 TH/MM3 0.3 TH/MM3 Eosinophils # (Auto) 0.0 TH/MM3 0.0 TH/MM3 Basophils # (Auto) 0.0 TH/MM3 0.0 TH/MM3 CBC Comment AUTO DIFF AUTO DIFF Differential Total Cells Counted 100 Neutrophils % (Manual) 44 % Band Neutrophils % 30 % Lymphocytes % 10 % Monocytes % 15 % Neutrophils # (Manual) 0.8 TH/MM3 Metamyelocytes 1 % Differential Comment FINAL DIFF MANUAL Platelet Estimate LOW Platelet Morphology Comment ENLARGED Prothrombin Time 10.6 SEC Prothromb Time International Ratio 1.0 RATIO Blood Urea Nitrogen 19 MG/DL 20 MG/DL Creatinine 1.01 MG/DL 0.98 MG/DL Random Glucose 101 MG/DL 79 MG/DL Calcium Level 9.9 MG/DL 9.9 MG/DL Sodium Level 140 MEQ/L 141 MEQ/L Potassium Level 4.0 MEQ/L 4.4 MEQ/L Chloride Level 107 MEQ/L 110 MEQ/L Carbon Dioxide Level 28.6 MEQ/L 26.2 MEQ/L Anion Gap 4 MEQ/L 5 MEQ/L Estimat Glomerular Filtration Rate 74 ML/MIN 77 ML/MIN Fibrinogen 402 mg/dL Albumin 2.9 GM/DL Aspartate Amino Transf (AST/SGOT) 15 U/L Alanine Aminotransferase (ALT/SGPT) 14 U/L Iron Level 85 MCG/DL Administered Medications Medications (Trade) Dose Ordered Sig/Panchito Route PRN Reason Start Time Stop Time Status Last Admin Dose Admin Sodium Chloride (NS Flush) 2 ml BID IV FLUSH 01/15/18 21:00 01/17/18 08:25 Enoxaparin Sodium (Lovenox Inj) 40 mg Q24H SQ 01/15/18 17:00 01/16/18 16:47 Morphine Sulfate (Morphine Inj) 2 mg Q3H PRN IV PUSH Pain 3-5; if unable to take PO 01/15/18 18:45 01/16/18 16:46 Morphine Sulfate (Morphine Inj) 4 mg Q3H PRN IV PUSH Pain 6-10;if unable to take PO 01/15/18 18:45 01/17/18 08:25 Clopidogrel Bisulfate (Plavix) 75 mg DAILY PO 01/16/18 09:00 01/17/18 08:25 Gabapentin (Neurontin) 400 mg BID PO 01/15/18 21:00 01/17/18 08:25 Haloperidol (Haldol) 5 mg BID PO 01/15/18 21:00 01/17/18 08:25 [place] Carbonate (Eskalith Sr) 450 mg BID PO 01/15/18 21:00 Future hold 01/16/18 22:35 Sertraline HCl (Zoloft) 50 mg DAILY PO 01/16/18 09:00 01/17/18 08:25 Multi-Ingredient Mouthwash/Gargle (Magic Mouthwash Adult Liq) 10 ml QID SWISH-SWAL 01/16/18 13:00 01/17/18 08:26 Filgrastim 300 mcg/Dextrose 26 ml @ 50 mls/hr DAILY@14 IV 01/16/18 23:00 01/17/18 00:42 Sodium Chloride 250 ml @ 15 mls/hr ONCE ONCE IV 01/17/18 00:00 01/17/18 16:39 01/17/18 01:48 Objective Remarks GENERAL: Middle aged male, lying in bed, resting. SKIN: Warm and dry. HEAD: Normocephalic. EYES: No scleral icterus. No injection or drainage. MOUTH: oral mucosa with irritation and white spots. NECK: Supple, trachea midline. CARDIOVASCULAR: Regular rate and rhythm RESPIRATORY: Breath sounds equal bilaterally. No accessory muscle use. GASTROINTESTINAL: Abdomen soft, non-tender, nondistended. EXTREMITIES: No cyanosis NEUROLOGICAL: awake and alert. normal speech. Assessment/Plan Problem List: (1) Anemia ICD Codes: D64.9 - Anemia, unspecified (2) Neutropenia ICD Codes: D70.9 - Neutropenia, unspecified (3) Head and neck cancer ICD Codes: C76.0 - Malignant neoplasm of head, face and neck (4) Mucositis ICD Codes: K12.30 - Oral mucositis (ulcerative), unspecified Assessment 68y/o male with head and neck cancer, admitted with dehydration, neutropenia. Plan 1. mucositis: continue supportive care with magic mouthwash, IVF, could consider PEG tube if patient desired 2. Neutropenia: likely d/t antineoplastic chemotherapy. currently on Neupogen with noted improvement of WBC. 3. Anemia: B12 WNL, iron studies pending. s/p 2 units pRBC with improvement of H /H. monitor. await iron studies. Attending Statement The exam, history, and the medical decision-making described in the above note were completed with the assistance of the mid-level provider. I reviewed and agree with the findings presented. I attest that I had a [id number] encounter with the patient on the same day, and personally performed and documented my assessment and findings in the medical record. Steff Jerome Jan 17, 2018 11:13 Mino Barajas MD Jan 17, 2018 17:42
[2018-01-17 11:16] LABS: % SATURATION IRON PROFILE 41.6 % (20-50); ALKALINE PHOSPHATASE 60 U/L (45-117); FERRITIN 355 NG/ML (26-388); TOTAL BILIRUBIN ADULT 0.5 MG/DL (0.2-1.0); TOTAL IRON BINDING CAPACITY 204 MCG/DL (250-450); TOTAL PROTEIN 6.3 GM/DL (6.4-8.2)
--- NOTE | 2018-01-17 11:26 | MB ---
cc: Mino Barajas MD DATE: 01/16/2018 REASON FOR CONSULTATION: The patient with a history of head and neck cancer, who recently completed concurrent chemotherapy and radiation treatments, who presents to the hospital with severe dysphagia, odynophagia and uncontrolled pain and poor oral intake. HISTORY OF PRESENT ILLNESS: This is a 68-year-old male who has a diagnosis of oropharyngeal cancer, who was recently treated with concurrent chemotherapy, radiation treatments. He has a history of bipolar disorder. He has seen Dr. Everett, Dr. De Paz and Dr. mathews in the past. The patient no longer wishes to see Dr. Everett. Thus, I have been asked to see this patient. He received his chemotherapy treatments under the care of Dr. De Paz and Inna. He now presents to the emergency room with oral pain, sores, difficulty swallowing food, including solids and liquids. He has declined PEG tube placement. He is currently sitting up and trying soft foods. He has not had any fevers or chills. No cough or congestion. REVIEW OF SYSTEMS: A comprehensive review of system was completed which is negative except as described in the HPI. PAST MEDICAL HISTORY: History of oropharyngeal cancer, history of thyroid cancer, hepatitis C, bipolar disorder. PAST SURGICAL HISTORY: Vasectomy. MEDICATIONS: Magic mouthwash q.i.d., clopidogrel 75 mg p.o. daily, Zoloft 50 mg p.o. daily, gabapentin 400 mg p.o. b.i.d., haloperidol 5 mg p.o. b.i.d., lithium 450 mg p.o. b.i.d., 2 mg IV every 3 hours p.r.n., Lovenox 40 mg subcutaneous every 24 hours, Tylenol 650 p.o. every 4 hours p.r.n., Zofran 4 mg IV every 6 hours p.r.n. ALLERGIES: NO KNOWN DRUG ALLERGIES. FAMILY HISTORY: Reviewed and is noncontributory to this admission. SOCIAL HISTORY: He states that he is currently homeless. He has a history of IV drug abuse. PHYSICAL EXAMINATION: VITAL SIGNS: Blood pressure is 119/62, pulse in the 50s, temperature is 97.8, respiratory rate is 12, O2 saturations are 99% on room air. GENERAL: Thin appearing male who is in no apparent distress. HEENT: Pupils equal, round, reactive to light. No thrush, oral lesions. NECK: Supple. No JVD. No bruits. No lymphadenopathy. CHEST: Clear to auscultation bilaterally. CARDIOVASCULAR: Regular rate and rhythm. ABDOMEN: Kyphotic. Bowel sounds are decreased. EXTREMITIES: No edema, erythema, cyanosis. SKIN: Without any petechiae, lesions or bruises. NEUROLOGIC: No focal deficits. PSYCHIATRIC: Mood and affect appropriate. LABORATORY DATA: WBC 2. Serum chemistries, sodium 143, potassium 4.6, chloride 111, BUN 19, creatinine 0.91, GFR 83, calcium 10.7. Total bilirubin 0.4, AST 14, ALT 16, alkaline phosphatase 66, total protein 6.8. IMAGING: No imaging was . ASSESSMENT AND PLAN: This is a 68-year-old male who has a diagnosis of cancer, locally advanced. He underwent based concurrent chemotherapy and radiation. He now presents to the emergency room with difficulty swallowing, oropharyngeal pain. 1. Radiation-induced esophagitis with . He has refused a PEG placement. He would like to continue to try oral intake. Will need to start a calorie count. If his oral intake does not improve, we will consider TPN. Obtain dietitian and see speech pathology consult. 2. Leukopenia with WBC of 1.4 . I will start daily Neupogen injection. If he spikes a fever, we need to obtain blood culture told of starting antibiotics. We will need antibiotic coverage for Gram-negative organisms. I recommend IV cefepime. We will continue to monitor for now. 3. , this is macrocytic. Possible underlying B12 deficiency. Check iron studies, obtain B12 and folate level. Check stool Hemoccult. 4. Thrombocytopenia, likely due to recent chemotherapy and also with a history of hepatitis C. Obtain LDH and haptoglobin. Review peripheral smear. 5. Oropharyngeal cancer, locally advanced, status post chemotherapy and radiation treatments. Followup with Dr. De Paz after discharge from the hospital. Thank you for allowing me to participate in the patient along. MD GRAYSON Saucedo , 10:52 PM , 11:42 PM
[2018-01-17 11:43] LABS: BANDS 27 % (0-6); LYMPHOCYTES 15 % (9-44); MONOCYTES 8 % (0-8); NEUTROPHIL # MANUAL DIFF 1.5 TH/MM3 (1.8-7.7); POLYS (SEG NEUTROPHILS) 50 % (16-70)
[2018-01-17 11:44] LABS: ACANTHOCYTES OCC (NORMAL); OVALOCYTES 1+ (NORMAL)
[2018-01-17] MEDS ORDERED: ACETAMINOPHEN/HYDROcodone 325 MG/5 MG TAB PO PRN (12:30)
[2018-01-17] MEDS: ACETAMINOPHEN/HYDROcodone 325 MG/10 MG TAB PO PRN ×3 (13:43→21:26)
--- NOTE | 2018-01-17 15:27 | EKG ---
Date Performed: 01/16/2018 Time Performed: 23:25:16 PTAGE: 68 years EKG: SINUS BRADYCARDIA BORDERLINE ECG Since the PREVIOUS TRACING , no significant change noted PREVIOUS TRACING; 09/15/2017 @0919 DOCTOR: Amilcar Plascencia Interpretating Date/Time 01/17/2018 15:21:34
[2018-01-17] MEDS: LITHIUM CARBONATE 450 MG CONTROLLED RELEASE TAB PO SCH (21:22)
[2018-01-17] MEDS: SENNOSIDES 8.6 MG TAB PO PRN (21:22)
[2018-01-18] VITALS (7 sets, daily range): BP systolic 99–169; BP diastolic 55–70; PULSE 59–76; RESP 15–20; TEMP 97.6–98.5; O2SAT 95–98
[2018-01-18] MEDS: ACETAMINOPHEN/HYDROcodone 325 MG/10 MG TAB PO PRN ×3 (05:23→22:12)
--- NOTE | 2018-01-18 08:48 | PQ ---
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 Other explanation of clinical findings. Unable to determine (no explanation for clinical findings). Please clarify and document your clinical opinion in the progress notes and discharge summary includi ng the definitive and/or presumptive diagnosis (suspected or probable), related to the above clinical findings. Please include clinical findings supporting your diagnosis. Thank you, Tess Fofana CDS: Tess Fofana Patient Unit: [id number] Contact Number: CDS/RN Room: 1612 The patient's Clinical Indicators include: * Clinical Indicators: from 01/16/18: Decreased red blood cells (Hgb: 6.8 Hct: 20.1 ), Decreased white blood cells (1.1), decreased platelet count (73), lethargy. * Risk Factors: Diagnosis of oropharyngeal cancer, recently treated with three months of concurrent c hemotherapy, radiation treatments. * Treatment: Transfused 2 units of irradiated RBC, labs, monitoring Query created by: Tess Fofana on 01/17/2018 1:50 PM RESPONSE TEXT: Mr Glasgow has bone marrow suppression from his chemo and radiation which resulted in his anemia, aplast ic anemia, and he needed a transfusion because of that. Electronically signed by: Shahrzad Sanon MD 01/18/2018 8:45 AM
[2018-01-18] MEDS: SODIUM CHLORIDE 0.9% FLUSH 10 ML FLUSH IV FLUSH SCH ×2 (09:00→22:13)
[2018-01-18] MEDS: HALOPERIDOL 5 MG TAB PO SCH ×2 (09:32→22:12)
[2018-01-18] MEDS: GABAPENTIN 400 MG CAP PO SCH ×2 (09:32→22:12)
[2018-01-18] MEDS: DOCUSATE SODIUM 50 MG/SENNA 8.6 MG TAB PO SCH ×2 (09:32→22:12)
[2018-01-18] MEDS: LITHIUM CARBONATE 450 MG CONTROLLED RELEASE TAB PO SCH ×2 (09:32→22:12)
[2018-01-18] MEDS: NYSTAT/DIPHENHY/LIDO MOUTHWASH (Adult) 120ML SWISH-SWAL SCH ×4 (09:33→22:13)
[2018-01-18] MEDS: SERTRALINE HCL 50 MG TAB PO SCH (09:33)
[2018-01-18 09:46] LABS: AUTOMATED NEUTROPHIL # 1.6 TH/MM3 (1.8-7.7); BASOPHIL % 0.1 % (0.0-2.0); HEMATOCRIT 27.1 % (39.0-51.0); HEMOGLOBIN 9.2 GM/DL (13.0-17.0); LYMPH % 14.6 % (9.0-44.0); LYMPHOCYTE # 0.3 TH/MM3 (1.0-4.8); MEAN CELL VOLUME 99.3 FL (80.0-100.0); MEAN CORPUSCULAR HEMOGLOBIN 33.8 PG (27.0-34.0); MEAN PLATELET VOLUME 9.3 FL (7.0-11.0); MONO % 15.1 % (0.0-8.0); MONOCYTE # 0.3 TH/MM3 (0-0.9); NEUT % 69.2 % (16.0-70.0); PLATELET COUNT 84 TH/MM3 (150-450); RED BLOOD COUNT 2.73 MIL/MM3 (4.50-5.90); RED CELL DISTRIBUTION WIDTH 22.4 % (11.6-17.2); WHITE BLOOD COUNT 2.3 TH/MM3 (4.0-11.0)
[2018-01-18 10:13] LABS: BICARBONATE 25.6 MEQ/L (21.0-32.0); CALCIUM 10.4 MG/DL (8.5-10.1)
[2018-01-18 10:14] LABS: CREATININE 0.9 MG/DL (0.60-1.30)
[2018-01-18 10:47] LABS: BANDS 34 % (0-6); CORRECTED NUCLEATED RBC 1 /100 WBC (0-0); DOHLE BODIES PRESENT (NONE SEEN); LYMPHOCYTES 7 % (9-44); METAMYELOCYTES 2 % (0-1); MONOCYTES 10 % (0-8); NEUTROPHIL # MANUAL DIFF 1.9 TH/MM3 (1.8-7.7); NUCLEATED RED BLOOD CELL 1 (0-0); POLYS (SEG NEUTROPHILS) 47 % (16-70); TOXIC GRANULATION 1+ (NORMAL)
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
[2018-01-18] MEDS: SODIUM CHLOR 0.9% 1000 ML INJ 1,000 ML IV SCH (15:00)
[2018-01-18] MEDS: FILGRASTIM INJ 300 MCG in DEXTROSE 5% IN WATER INJ 25 ML IV SCH ×2 (15:39)
[2018-01-18] MEDS: SENNOSIDES 8.6 MG TAB PO PRN (22:15)
[2018-01-19] VITALS: BP 162/68; PULSE 68; RESP 18; TEMP 97.4; O2SAT 96
[2018-01-19] MEDS: SODIUM CHLOR 0.9% 1000 ML INJ 1,000 ML IV SCH ×5 (01:39→22:47)
[2018-01-19] MEDS: ACETAMINOPHEN/HYDROcodone 325 MG/10 MG TAB PO PRN ×6 (02:01→22:46)
[2018-01-19 04:00] VITALS: BP 107/58; PULSE 65; RESP 16; TEMP 98.7; O2SAT 96
[2018-01-19 08:00] VITALS: BP 131/65; PULSE 57; RESP 18; TEMP 98.2; O2SAT 98
[2018-01-19] MEDS: NYSTAT/DIPHENHY/LIDO MOUTHWASH (Adult) 120ML SWISH-SWAL SCH ×4 (08:55→21:00)
[2018-01-19] MEDS: HALOPERIDOL 5 MG TAB PO SCH ×2 (08:55→21:21)
[2018-01-19] MEDS: SERTRALINE HCL 50 MG TAB PO SCH (08:55)
[2018-01-19] MEDS: GABAPENTIN 400 MG CAP PO SCH ×2 (08:55→21:21)
[2018-01-19] MEDS: LITHIUM CARBONATE 450 MG CONTROLLED RELEASE TAB PO SCH ×2 (08:56→21:21)
[2018-01-19] MEDS: SODIUM CHLORIDE 0.9% FLUSH 10 ML FLUSH IV FLUSH SCH ×2 (08:59→21:00)
[2018-01-19] MEDS: DOCUSATE SODIUM 50 MG/SENNA 8.6 MG TAB PO SCH ×2 (09:00→21:20)
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
[2018-01-19 12:00] VITALS: BP 138/66; PULSE 65; RESP 18; TEMP 97.9; O2SAT 100
[2018-01-19] MEDS: FILGRASTIM INJ 300 MCG in DEXTROSE 5% IN WATER INJ 25 ML IV SCH ×2 (13:18)
[2018-01-19 14:00] VITALS: BP 112/59; PULSE 53; RESP 18; TEMP 97.8; O2SAT 96
[2018-01-19 20:01] VITALS: BP 132/66; PULSE 57; RESP 18; TEMP 97.9; O2SAT 98
[2018-01-20 00:35] VITALS: BP 116/55; PULSE 57; RESP 17; TEMP 98.7; O2SAT 96
[2018-01-20 04:35] VITALS: BP 146/65; PULSE 65; RESP 17; TEMP 97.3; O2SAT 98
[2018-01-20] MEDS: ACETAMINOPHEN/HYDROcodone 325 MG/10 MG TAB PO PRN ×4 (04:49→17:28)
[2018-01-20] MEDS ORDERED: DEXTROMETHORPHAN SYRUP 7.5MG/5ML UDC PO PRN (05:30)
[2018-01-20] MEDS ORDERED: RESP: ALBUTEROL 2.5 MG/IPRATROPIUM 0.5 MG NEB (PRN) NEB (05:30)
[2018-01-20 07:45] LABS: BASOPHIL % 0.1 % (0.0-2.0); EOSINOPHIL % 0.6 % (0.0-4.0); HEMATOCRIT 26.4 % (39.0-51.0); HEMOGLOBIN 9.1 GM/DL (13.0-17.0); LYMPH % 9.9 % (9.0-44.0); LYMPHOCYTE # 0.5 TH/MM3 (1.0-4.8); MEAN CELL VOLUME 99.5 FL (80.0-100.0); MEAN CORPUSCULAR HEMOGLOBIN 34.2 PG (27.0-34.0); MEAN CORPUSCULAR HGB CONC 34.4 % (32.0-36.0); MEAN PLATELET VOLUME 9.5 FL (7.0-11.0); MONO % 13.8 % (0.0-8.0); MONOCYTE # 0.7 TH/MM3 (0-0.9); NEUT % 75.6 % (16.0-70.0); PLATELET COUNT 106 TH/MM3 (150-450); RED BLOOD COUNT 2.66 MIL/MM3 (4.50-5.90); RED CELL DISTRIBUTION WIDTH 21.6 % (11.6-17.2); WHITE BLOOD COUNT 5.2 TH/MM3 (4.0-11.0)
[2018-01-20 08:00] VITALS: BP 143/65; PULSE 57; RESP 16; TEMP 98.1; O2SAT 98
[2018-01-20 08:19] LABS: BICARBONATE 24.8 MEQ/L (21.0-32.0); CALCIUM 9.7 MG/DL (8.5-10.1); CREATININE 0.8 MG/DL (0.60-1.30)
--- NOTE | 2018-01-20 08:59 | RADRPT ---
EXAM DATE/TIME: 01/20/2018 08:47 [facility] COMPARISON: CHEST PA & LAT, February 13, 2015, 12:45. INDICATIONS : Short of breath MEDICAL HISTORY : Hypertension. Diabetes mellitus type II. Hepatitis C. tongue and throat cancer, radiation therapy , chemo SURGICAL HISTORY : None. ENCOUNTER: Initial ACUITY: 1 day PAIN SCORE: 0/10 LOCATION: Bilateral chest FINDINGS: Is mild infiltrate in the left lower lobe. Right lung is grossly clear. No effusion suspected. Cardio mediastinal contours are satisfactory. Left chest port is present in good position. Thoracic skeleton is intact. CONCLUSION: Left lower lobe infiltrate Tahir Antunez MD on January 20, 2018 at 8:56 Board Certified Radiologist. This report was verified electronically.
[2018-01-20] MEDS: GABAPENTIN 400 MG CAP PO SCH (09:15)
[2018-01-20] MEDS: HALOPERIDOL 5 MG TAB PO SCH (09:15)
[2018-01-20] MEDS: LITHIUM CARBONATE 450 MG CONTROLLED RELEASE TAB PO SCH (09:15)
[2018-01-20] MEDS: NYSTAT/DIPHENHY/LIDO MOUTHWASH (Adult) 120ML SWISH-SWAL SCH ×2 (09:15→13:51)
[2018-01-20] MEDS: SODIUM CHLORIDE 0.9% FLUSH 10 ML FLUSH IV FLUSH SCH (09:15)
[2018-01-20] MEDS: DOCUSATE SODIUM 50 MG/SENNA 8.6 MG TAB PO SCH (09:15)
[2018-01-20] MEDS: SERTRALINE HCL 50 MG TAB PO SCH (09:15)
[2018-01-20 10:27] LABS: BANDS 45 % (0-6); LYMPHOCYTES 8 % (9-44); METAMYELOCYTES 1 % (0-1); MONOCYTES 8 % (0-8); MYELOCYTES 1 % (0-0); NEUTROPHIL # MANUAL DIFF 4.3 TH/MM3 (1.8-7.7); POLYS (SEG NEUTROPHILS) 35 % (16-70); PROMYELOCYTES 1 % (0-0)
[2018-01-20 10:28] LABS: OVALOCYTES 1+ (NORMAL); TOXIC GRANULATION 2+ (NORMAL)
[2018-01-20 10:30] LABS: DOHLE BODIES PRESENT (NONE SEEN)
[2018-01-20 12:00] VITALS: BP 129/60; PULSE 64; RESP 17; TEMP 97.5; O2SAT 98
[2018-01-20] MEDS: FILGRASTIM INJ 300 MCG in DEXTROSE 5% IN WATER INJ 25 ML IV SCH ×2 (13:45)
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
[2018-01-20 16:00] VITALS: BP 142/63; PULSE 58; RESP 16; TEMP 97.9; O2SAT 100
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
[2018-01-20] MEDS ORDERED: HYDR-3583 PO (16:27)
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
== END 2018-01-20 18:04 | disposition home health service (06) | DRG 154 ==
LOC: NEPE 10:41 → NEDA 15:10 → N06B 18:18 → N06A 18:18
PROVIDERS: ADMIT Family Medicine; ATTEND Family Medicine
PROC: 30233N1 Transfusion of Nonautologous Red Blood Cells into Peripheral Vein, Percutaneous Approach (ICD-10-PCS; principal; 2018-01-17)
DX: T28.0XXA Burn of mouth and pharynx, initial encounter (principal); D61.2 Aplastic anemia due to other external agents; R64 Cachexia; D61.818 Other pancytopenia; I95.9 Hypotension, unspecified; D69.59 Other secondary thrombocytopenia; F11.20 Opioid dependence, uncomplicated; C10.9 Malignant neoplasm of oropharynx, unspecified; R13.10 Dysphagia, unspecified; G30.9 Alzheimer's disease, unspecified; F02.80 Dementia in other diseases classified elsewhere, unspecified severity, without behavioral disturbance, psychotic disturbance, mood disturbance, and anxiety; Y84.2 Radiological procedure and radiotherapy as the cause of abnormal reaction of the patient, or of later complication, without mention of misadventure at the time of the procedure; T45.1X5A Adverse effect of antineoplastic and immunosuppressive drugs, initial encounter; E86.0 Dehydration; F31.9 Bipolar disorder, unspecified; I10 Essential (primary) hypertension; E07.9 Disorder of thyroid, unspecified; H91.90 Unspecified hearing loss, unspecified ear; Z66 Do not resuscitate; K20.8 Other esophagitis; R25.1 Tremor, unspecified; R27.0 Ataxia, unspecified; B19.20 Unspecified viral hepatitis C without hepatic coma; F41.9 Anxiety disorder, unspecified; K12.30 Oral mucositis (ulcerative), unspecified; Z85.818 Personal history of malignant neoplasm of other sites of lip, oral cavity, and pharynx; Z92.3 Personal history of irradiation; Z92.21 Personal history of antineoplastic chemotherapy; Z79.82 Long term (current) use of aspirin; Z86.73 Personal history of transient ischemic attack (TIA), and cerebral infarction without residual deficits; Z86.19 Personal history of other infectious and parasitic diseases; Z72.0 Tobacco use; Z86.011 Personal history of benign neoplasm of the brain; Z81.8 Family history of other mental and behavioral disorders; Z79.899 Other long term (current) drug therapy; Z85.850 Personal history of malignant neoplasm of thyroid; Z91.5 Personal history of self-harm; Z59.0 Homelessness
CPT/HCPCS: 36430; 71046; 80048; 80053; 80178; 82607; 82728; 82747; 83010; 83540; 83550; 83605; 83615; 85007; 85025; 85027; 85384; 85610; 86703; 86705; 86803; 86850; 86900; 86901; 86920; 87340; 93005; 96374; 96376; 99282; J1442; J1650; J2270; J7030; J7040; J7050; P9040

== ENCOUNTER 2018-04-22 19:25 | Inpatient (IN) ==
[2018-04-22] MEDS ORDERED: Sod Chloride 0.9% Inj 1,000 ML IV.SIG ONE (20:21)
--- NOTE | 2018-04-22 21:01 | CT ---
EXAM DATE: 04/22/2018 8:52 PM EDT AGE/SEX: 68 years / Male INDICATIONS: Altered mental status. CLINICAL DATA: This is the patient's initial encounter. Patient reports that signs and symptoms have been present for 2 weeks and indicates a pain score of Nonresponsive. MEDICAL/SURGICAL HISTORY: . throat cancer None. RADIATION DOSE: 56.35 CTDI (mGy) COMPARISON: [facility] – [place], CT BRAIN W/O CONTRAST, 07/30/2017. . TECHNIQUE: CT of the head without contrast. Using automated exposure control and adjustment of the mA and/or kV according to patient size, radiation dose was kept as low as reasonably achievable to ob tain optimal diagnostic quality images. DICOM format image data is available electronically for revi ew and comparison. FINDINGS: Cerebrum: The ventricles are normal for age. No evidence of midline shift, mass lesion, hemorrhage or acute infarction. No extraaxial fluid collections are seen. Posterior Fossa: The cerebellum and brainstem are intact. The 4th ventricle is midline. The cerebe llopontine angle is unremarkable. Extracranial: The visualized portion of the orbits is intact. Skull: The calvaria is intact. No evidence of skull fracture. CONCLUSION: 1. Negative noncontrast head CT. Electronically signed by: Willian Echols MD 04/22/2018 9:00 PM EDT
[2018-04-22 21:13] LABS: Baso % (Auto) 0.2 % (0.0-2.0); Eos # (Auto) 0.1 th/mm3 (0.0-0.4); Eos % (Auto) 0.7 % (0.0-4.0); Hematocrit 33.3 % (39.0-51.0); Hemoglobin 11.3 gm/dL (13.0-17.0); Lymph # (Auto) 0.5 th/mm3 (1.0-4.8); Lymph % (Auto) 5.1 % (9.0-44.0); Mean Corpuscular HGB Conc 33.9 % (32.0-36.0); Mean Corpuscular Hemoglobin 33.9 pg (27.0-34.0); Mean Platelet Volume 8.7 fL (7.0-11.0); Mono # (Auto) 0.6 th/mm3 (0.0-0.9); Mono % (Auto) 5.6 % (0.0-8.0); Neut # (Auto) 8.9 th/mm3 (1.8-7.7); Neut % (Auto) 88.4 % (16.0-70.0); Platelet Count 223 th/mm3 (150-450); Red Blood Count 3.32 mil/mm3 (4.50-5.90); White Blood Count 10.1 th/mm3 (4.0-11.0)
[2018-04-22 21:20] LABS: Bilirubin,Urine Negative (Negative); Clarity,Urine Clear (Clear); Color,Urine Yellow (Yellw/Straw); Glucose,Urine (UA) Negative (Negative); Leukocyte Esterase,Urine Trace (Negative); Mucus,Urine Few /lpf (Occasional); Nitrite,Urine Negative (Negative); Specific Gravity,Urine 1.011 (1.002-1.035)
[2018-04-22 21:26] LABS: Activated Partial Thrombo Time 23.8 sec (24.3-30.1); INR 1.1 Ratio; Prothrombin Time 11.2 sec (9.8-11.6)
--- NOTE | 2018-04-22 21:33 | ED ---
HPI General Chief Complaint: Altered Mental Status Stated Complaint: confused Time Seen by Provider: 04/22/18 20:20 Source: patient Mode of arrival: ambulatory Limitations: no limitations History of Present Illness HPI narrative: 68-year-old male with a history of tongue cancer, bipolar disorder, presents emergency department via EVAC from [facility] ([place], [place]) and rehab for evaluation altered mental status that is been persistent for 1-2 weeks. EVAC states that patient has had a decline in his mental status according to family and is here today for evaluation. States that ever since he was re-diagnosed with cancer patient's mental health has been declining and patient has had a difficult time eating and drinking. Patient has been in a hospice transition program but is not actually on hospice. Patient denies fever , chills, chest pain, shortness of breath, abdominal pain, leg pain. He says that he believes he is being overmedicated which is causing his frequent falls. EVAC states that patient fell 2 weeks ago. MD complaint: altered mental status and other Onset (ago): week(s) (1-2 ) Timing confirmed by: family member Consistency of symptoms: getting worse Associated symptoms: denies other symptoms Related Data Home Medications Medication Instructions Recorded Confirmed bupropion HCl [Wellbutrin XL] 300 mg PO QAM 04/22/18 04/22/18 fentanyl 1 patch TRANSDERMAL Q72H 04/22/18 04/22/18 lactulose 10 g PO TID 04/22/18 04/22/18 lithium carbonate 300 mg PO TID 04/22/18 04/22/18 oxycodone 20 mg PO Q12H 04/22/18 04/22/18 quetiapine [Seroquel] 25 mg PO BID 04/22/18 04/22/18 sennosides [senna] 8.6 mg PO BID PRN 04/22/18 04/22/18 Allergies Allergy/AdvReac Type Severity Reaction Status Date / Time No Known Allergies Allergy Unverified 01/13/18 21:21 Review of Systems Except as stated in HPI: all other systems reviewed are negative PENDING SALE TO [facility] Surgical History Surgical History Status post radiation therapy (Acute) Social History Social History Substance History: Unable to Obtain Smoking Status: Unknown if ever smoked How Often Do You Have a Drink Containing Alcohol: Unable to Obtain Recent Travel in [facility] within the Last 8 Weeks: No Recent Out of Country Travel within the Last 8 Weeks: No Immunization History Tetanus Immunization: <5 Years Hx Influenza Vaccine This Season: Yes Exam Narrative Exam Narrative: GENERAL: Well-developed cachectic no apparent distress SKIN: Focused skin assessment warm/dry. Fentanyl patch on right back and left anterior chest HEAD: Atraumatic. Normocephalic. EYES: Pupils equal and round. No scleral icterus. No injection or drainage. ENT: No nasal bleeding or discharge. Mucous membranes pink and moist. NECK: Trachea midline. No JVD. CARDIOVASCULAR: Regular rate and rhythm. No murmur appreciated. RESPIRATORY: No accessory muscle use. Clear to auscultation. Breath sounds equal bilaterally. GASTROINTESTINAL: Abdomen soft, non-tender, nondistended. Hepatic and splenic margins not palpable. MUSCULOSKELETAL: No obvious deformities. No clubbing. No cyanosis. No edema. NEUROLOGICAL: Awake and alert. No obvious cranial nerve deficits. Motor grossly within normal limits. Normal speech. PSYCHIATRIC: Appropriate mood and affect; insight and judgment normal. Course Initial Documented Vital Signs Temperature 99.5 F 04/22/18 20:20 Pulse Rate 81 04/22/18 20:20 Respiratory Rate 20 04/22/18 20:20 Blood Pressure 175/79 H 04/22/18 20:20 Pulse Oximetry 100 04/22/18 20:20 Last Documented Vital Signs Temperature 98.0 F 04/23/18 16:00 Pulse Rate 75 04/23/18 16:00 Respiratory Rate 22 04/23/18 12:00 Blood Pressure 141/69 H 04/23/18 16:00 Pulse Oximetry 93 L 04/23/18 19:38 Medical Decision Making [facility] Narrative Medical decision making narrative: 68-year-old male presents emergency department via EVAC from [facility] ([place], [place]) and rehab for evaluation of altered mental status that has been progressive over the last 1-2 weeks. According to EVAC, patient has had multiple falls and has become progressively worse in terms of performing ADLs. Patient states that he believes he is overmedicated. His vital signs are stable. Physical exam findings demonstrate a well-developed, cachectic 68-year-old male in no acute distress. 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 Upon evaluation of his skin, patient has 2 fentanyl patches on. 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 No leukocytosis. Calcium 11.7 UA 7 white blood cells, trace leukocyte esterase. I discussed this case with Dr. Aguirre who agreed to the admission. Differential Diagnosis Differential Diagnosis: AMS, intoxication, medication induced delirium Lab Data Result diagrams: 04/23/18 07:39 04/23/18 07:39 Lab Results 04/22/18 04/22/18 04/22/18 Range/Units 20:35 20:35 20:40 WBC 10.1 (4.0-11.0) th/mm3 RBC 3.32 L (4.50-5.90) mil/mm3 Hgb 11.3 L (13.0-17.0) gm/dL Hct 33.3 L (39.0-51.0) % MCV 100.0 (80.0-100.0) fL MCH 33.9 (27.0-34.0) pg MCHC 33.9 (32.0-36.0) % RDW 13.0 (11.6-17.2) % Plt Count 223 (150-450) th/mm3 MPV 8.7 (7.0-11.0) fL Neut % (Auto) 88.4 H (16.0-70.0) % Lymph % (Auto) 5.1 L (9.0-44.0) % [place] % (Auto) 5.6 (0.0-8.0) % Eos % (Auto) 0.7 (0.0-4.0) % Baso % (Auto) 0.2 (0.0-2.0) % Neut # (Auto) 8.9 H (1.8-7.7) th/mm3 Lymph # (Auto) 0.5 L (1.0-4.8) th/mm3 [place] # (Auto) 0.6 (0.0-0.9) th/mm3 Eos # (Auto) 0.1 (0.0-0.4) th/mm3 Baso # (Auto) 0.0 (0.0-0.2) th/mm3 WBC Differential . Differential Comment Auto diff final PT (9.8-11.6) sec INR Ratio APTT (24.3-30.1) sec Sodium (136-145) meq/L Potassium (3.5-5.1) meq/L Chloride (98-107) meq/L Carbon Dioxide (21.0-32.0) meq/L Anion Gap (5-15) meq/L BUN (7-18) mg/dL Creatinine (0.60-1.30) mg/dL Estimated GFR (>89) mL/min Random Glucose (74-106) mg/dL Calcium (8.5-10.1) mg/dL Prot Corrected Calcium (8.5-10.1) mg/dL Iron (65-175) mcg/dL TIBC (250-450) mcg/dL % Saturation (20-50) % Ferritin (26-388) ng/mL Total Bilirubin (0.2-1.0) mg/dL AST (15-37) U/L ALT (12-78) U/L Alkaline Phosphatase (45-117) U/L Ammonia (11-32) mcmol/L Total Creatine Kinase (39-308) U/L Total Protein (6.4-8.2) g/dL Albumin (3.4-5.0) g/dL Vitamin B12 (193-986) pg/mL Folate (3.1-17.5) ng/mL TSH (0.358-3.740) uIU/mL Urine Color Yellow (Yellw/Straw) Urine Clarity Clear (Clear) Urine pH 7.0 (5.0-8.5) Ur Specific [place] 1.011 (1.002-1.035) Urine Protein Negative (Neg-Trace) mg/dL Urine Glucose (UA) Negative (Negative) mg/dL Urine Ketones Negative (Negative) mg/dL Urine Occult Blood Negative (Negative) Urine Nitrate Negative (Negative) Urine Bilirubin Negative (Negative) Urine Urobilinogen Less than 2 (Less than 2) mg/dL Ur Leukocyte Esterase Trace H (Negative) Urine RBC Less than 1 (0-3) /hpf Urine WBC 7 H (0-5) /hpf Urine Mucus Few H (Occasional) /lpf Micro UA Comment Culture not ind Urine Culture Comments Culture not ind Urine Opiates Screen Neg (Neg) Ur Barbiturates Screen Neg (Neg) Ur Amphetamines Screen Neg (Neg) U Benzodiazepines Scrn Neg (Neg) [place] (0.5-1.5) meq/L Urine Cocaine Screen Neg (Neg) U Cannabinoids Screen Neg (Neg) 04/22/18 04/22/18 04/22/18 Range/Units 20:40 20:40 20:40 WBC (4.0-11.0) th/mm3 RBC (4.50-5.90) mil/mm3 Hgb (13.0-17.0) gm/dL Hct (39.0-51.0) % MCV (80.0-100.0) fL MCH (27.0-34.0) pg MCHC (32.0-36.0) % RDW (11.6-17.2) % Plt Count (150-450) th/mm3 MPV (7.0-11.0) fL Neut % (Auto) (16.0-70.0) % Lymph % (Auto) (9.0-44.0) % [place] % (Auto) (0.0-8.0) % Eos % (Auto) (0.0-4.0) % Baso % (Auto) (0.0-2.0) % Neut # (Auto) (1.8-7.7) th/mm3 Lymph # (Auto) (1.0-4.8) th/mm3 [place] # (Auto) (0.0-0.9) th/mm3 Eos # (Auto) (0.0-0.4) th/mm3 Baso # (Auto) (0.0-0.2) th/mm3 WBC Differential Differential Comment PT 11.2 (9.8-11.6) sec INR 1.1 Ratio APTT 23.8 L (24.3-30.1) sec Sodium 142 (136-145) meq/L Potassium 3.9 (3.5-5.1) meq/L Chloride 107 (98-107) meq/L Carbon Dioxide 25.7 (21.0-32.0) meq/L Anion Gap 9 (5-15) meq/L BUN 40 H (7-18) mg/dL Creatinine 1.45 H (0.60-1.30) mg/dL Estimated GFR 49 L (>89) mL/min Random Glucose 90 (74-106) mg/dL Calcium 11.7 H* (8.5-10.1) mg/dL Prot Corrected Calcium 11.3 H (8.5-10.1) mg/dL Iron (65-175) mcg/dL TIBC (250-450) mcg/dL % Saturation (20-50) % Ferritin (26-388) ng/mL Total Bilirubin 0.5 (0.2-1.0) mg/dL AST 16 (15-37) U/L ALT 18 (12-78) U/L Alkaline Phosphatase 96 (45-117) U/L Ammonia 15 (11-32) mcmol/L Total Creatine Kinase 61 (39-308) U/L Total Protein 7.8 (6.4-8.2) g/dL Albumin 4.0 (3.4-5.0) g/dL Vitamin B12 (193-986) pg/mL Folate (3.1-17.5) ng/mL TSH 1.620 (0.358-3.740) uIU/mL Urine Color (Yellw/Straw) Urine Clarity (Clear) Urine pH (5.0-8.5) Ur Specific [place] (1.002-1.035) Urine Protein (Neg-Trace) mg/dL Urine Glucose (UA) (Negative) mg/dL Urine Ketones (Negative) mg/dL Urine Occult Blood (Negative) Urine Nitrate (Negative) Urine Bilirubin (Negative) Urine Urobilinogen (Less than 2) mg/dL Ur Leukocyte Esterase (Negative) Urine RBC (0-3) /hpf Urine WBC (0-5) /hpf Urine Mucus (Occasional) /lpf Micro UA Comment Urine Culture Comments Urine Opiates Screen (Neg) Ur Barbiturates Screen (Neg) Ur Amphetamines Screen (Neg) U Benzodiazepines Scrn (Neg) [place] (0.5-1.5) meq/L Urine Cocaine Screen (Neg) U Cannabinoids Screen (Neg) 04/22/18 04/23/18 04/23/18 Range/Units 20:40 07:39 07:39 WBC 8.3 (4.0-11.0) th/mm3 RBC 3.17 L (4.50-5.90) mil/mm3 Hgb 11.0 L (13.0-17.0) gm/dL Hct 31.9 L (39.0-51.0) % MCV 100.6 H (80.0-100.0) fL MCH 34.6 H (27.0-34.0) pg MCHC 34.4 (32.0-36.0) % RDW 12.9 (11.6-17.2) % Plt Count 205 (150-450) th/mm3 MPV 8.6 (7.0-11.0) fL Neut % (Auto) 87.1 H (16.0-70.0) % Lymph % (Auto) 5.5 L (9.0-44.0) % [place] % (Auto) 6.2 (0.0-8.0) % Eos % (Auto) 1.1 (0.0-4.0) % Baso % (Auto) 0.1 (0.0-2.0) % Neut # (Auto) 7.3 (1.8-7.7) th/mm3 Lymph # (Auto) 0.5 L (1.0-4.8) th/mm3 [place] # (Auto) 0.5 (0.0-0.9) th/mm3 Eos # (Auto) 0.1 (0.0-0.4) th/mm3 Baso # (Auto) 0.0 (0.0-0.2) th/mm3 WBC Differential . Differential Comment Auto diff final PT (9.8-11.6) sec INR Ratio APTT (24.3-30.1) sec Sodium 148 H (136-145) meq/L Potassium 3.6 (3.5-5.1) meq/L Chloride 115 H D (98-107) meq/L Carbon Dioxide 25.4 (21.0-32.0) meq/L Anion Gap 8 (5-15) meq/L BUN 30 H (7-18) mg/dL Creatinine 1.22 (0.60-1.30) mg/dL Estimated GFR 59 L (>89) mL/min Random Glucose 72 L (74-106) mg/dL Calcium 11.5 H (8.5-10.1) mg/dL Prot Corrected Calcium (8.5-10.1) mg/dL Iron (65-175) mcg/dL TIBC (250-450) mcg/dL % Saturation (20-50) % Ferritin (26-388) ng/mL Total Bilirubin 0.7 (0.2-1.0) mg/dL AST 13 L (15-37) U/L ALT 19 (12-78) U/L Alkaline Phosphatase 95 (45-117) U/L Ammonia (11-32) mcmol/L Total Creatine Kinase (39-308) U/L Total Protein 7.4 (6.4-8.2) g/dL Albumin 3.8 (3.4-5.0) g/dL Vitamin B12 (193-986) pg/mL Folate (3.1-17.5) ng/mL TSH (0.358-3.740) uIU/mL Urine Color (Yellw/Straw) Urine Clarity (Clear) Urine pH (5.0-8.5) Ur Specific [place] (1.002-1.035) Urine Protein (Neg-Trace) mg/dL Urine Glucose (UA) (Negative) mg/dL Urine Ketones (Negative) mg/dL Urine Occult Blood (Negative) Urine Nitrate (Negative) Urine Bilirubin (Negative) Urine Urobilinogen (Less than 2) mg/dL Ur Leukocyte Esterase (Negative) Urine RBC (0-3) /hpf Urine WBC (0-5) /hpf Urine Mucus (Occasional) /lpf Micro UA Comment Urine Culture Comments Urine Opiates Screen (Neg) Ur Barbiturates Screen (Neg) Ur Amphetamines Screen (Neg) U Benzodiazepines Scrn (Neg) [place] 1.8 H (0.5-1.5) meq/L Urine Cocaine Screen (Neg) U Cannabinoids Screen (Neg) 04/23/18 Range/Units 07:39 WBC (4.0-11.0) th/mm3 RBC (4.50-5.90) mil/mm3 Hgb (13.0-17.0) gm/dL Hct (39.0-51.0) % MCV (80.0-100.0) fL MCH (27.0-34.0) pg MCHC (32.0-36.0) % RDW (11.6-17.2) % Plt Count (150-450) th/mm3 MPV (7.0-11.0) fL Neut % (Auto) (16.0-70.0) % Lymph % (Auto) (9.0-44.0) % [place] % (Auto) (0.0-8.0) % Eos % (Auto) (0.0-4.0) % Baso % (Auto) (0.0-2.0) % Neut # (Auto) (1.8-7.7) th/mm3 Lymph # (Auto) (1.0-4.8) th/mm3 [place] # (Auto) (0.0-0.9) th/mm3 Eos # (Auto) (0.0-0.4) th/mm3 Baso # (Auto) (0.0-0.2) th/mm3 WBC Differential Differential Comment PT (9.8-11.6) sec INR Ratio APTT (24.3-30.1) sec Sodium (136-145) meq/L Potassium (3.5-5.1) meq/L Chloride (98-107) meq/L Carbon Dioxide (21.0-32.0) meq/L Anion Gap (5-15) meq/L BUN (7-18) mg/dL Creatinine (0.60-1.30) mg/dL Estimated GFR (>89) mL/min Random Glucose (74-106) mg/dL Calcium (8.5-10.1) mg/dL Prot Corrected Calcium (8.5-10.1) mg/dL Iron 63 L (65-175) mcg/dL TIBC 237 L (250-450) mcg/dL % Saturation 26.6 (20-50) % Ferritin 370 (26-388) ng/mL Total Bilirubin (0.2-1.0) mg/dL AST (15-37) U/L ALT (12-78) U/L Alkaline Phosphatase (45-117) U/L Ammonia (11-32) mcmol/L Total Creatine Kinase (39-308) U/L Total Protein (6.4-8.2) g/dL Albumin (3.4-5.0) g/dL Vitamin B12 1236 H (193-986) pg/mL Folate Greater than 20.0 H (3.1-17.5) ng/mL TSH (0.358-3.740) uIU/mL Urine Color (Yellw/Straw) Urine Clarity (Clear) Urine pH (5.0-8.5) Ur Specific [place] (1.002-1.035) Urine Protein (Neg-Trace) mg/dL Urine Glucose (UA) (Negative) mg/dL Urine Ketones (Negative) mg/dL Urine Occult Blood (Negative) Urine Nitrate (Negative) Urine Bilirubin (Negative) Urine Urobilinogen (Less than 2) mg/dL Ur Leukocyte Esterase (Negative) Urine RBC (0-3) /hpf Urine WBC (0-5) /hpf Urine Mucus (Occasional) /lpf Micro UA Comment Urine Culture Comments Urine Opiates Screen (Neg) Ur Barbiturates Screen (Neg) Ur Amphetamines Screen (Neg) U Benzodiazepines Scrn (Neg) [place] (0.5-1.5) meq/L Urine Cocaine Screen (Neg) U Cannabinoids Screen (Neg) Imaging Data Radiologist's impression: Head CT 04/22/18 20:21 CONCLUSION: 1. Negative noncontrast head CT. Discharge Plan Discharge Disposition Patient Disposition: 30 Still Patient Discharge Condition Condition: Stable Discharge Details Diagnosis: Altered mental status, Hypercalcemia, ALYSHA (acute kidney injury) Physicians Team ED Provider: Luiza Rios ED Midlevel Provider: Erika Siddiqui Primary Care Provider: Colin Mcgarry Attending Provider: Karey Guevara Other Providers: Mino Barajas Status ED Status: Left Department Discharge Information Discharge Date/Time: 04/23/18 03:57
[2018-04-22 21:46] LABS: Calcium 11.7 mg/dL (8.5-10.1); Carbon Dioxide 25.7 meq/L (21.0-32.0); Potassium 3.9 meq/L (3.5-5.1)
[2018-04-22 21:52] LABS: Thyroid Stimulating Hormone 1.62 uIU/mL (0.358-3.740); Total Protein 7.8 g/dL (6.4-8.2)
[2018-04-22] MEDS ORDERED: Gadobutrol PF 7.5 MMOL/7.5 ML Vial (for RAD) IV.SIG ONE (23:22)
[2018-04-22 23:30] LABS: Amphetamine Screen,Urine Neg (Neg); Barbiturate Screen,Urine Neg (Neg); Cannabinoid Screen,Urine Neg (Neg); Cocaine Screen,Urine Neg (Neg)
[2018-04-22 23:40] LABS: Opiate Screen,Urine Neg (Neg)
[2018-04-22] MEDS ORDERED: Bisacodyl 10 MG Supp RECTAL PRN (23:50)
[2018-04-22] MEDS ORDERED: Temazepam 15 MG Capsule PO PRN (23:50)
[2018-04-22] MEDS ORDERED: Acetaminophen 325 MG Tablet PO PRN (23:50)
--- NOTE | 2018-04-22 23:52 | P.HPIM ---
History of Present Illness Primary Care Physician: Colin Mcgarry MD History of Present Illness: This is a 68-year-old male with a PMH of Oropharyngeal CA and Bipolar Disorder who was sent to the ER for AMS. Pt unable to provide any history. History obtained from patient's Daughter at bedside. Daughter states pt is following w / Dr. De Paz in [facility] and Dr. Walton, is s/p chemo/radiation, was sent to Rehab after last admission "to recover". Per Daughter pt had previously refused PEG tube placement and was transiently placed on Hospice, however Daughter states she took him off of Hospice 1wk ago because "he wants to live". Per Daughter pt had PET scan on Tuesday but believes he was unable to complete it due to AMS. Daughter notes decreased PO intake and worsening confusion for the last several days. Concerned that he is being overmedicated. On arrival, BP 168/72, HR 68, O2 sat 98% on RA, Temp 99.0. CBC essentially unremarkable. INR 1.1. Chemistry unremarkable except for creatinine 1.45, PVCs 0.80 on 01/20/2018. Calcium 11.7. UA with trace LE, mild bacteriuria. Urine Drug Screen negative. [place] 1.8. CT Head with no acute findings. While in ER pt remains confused, attempting to get out of bed. - Diagnosis (1) Encephalopathy (2) Oropharyngeal cancer (3) Bipolar disorder (4) Hypercalcemia (5) ALYSHA (acute kidney injury) Review of Systems unobtainable due to mental status PMFSH - History History Provided By: Patient - Medical History Medical History: Medical History (Last Updated 04/22/18 @ 20:52 by Tiffany Villeda) Cancer (Acute) Anorexia (Acute) Anxiety (Acute) - Surgical History Surgical History: Surgical History (Last Updated 04/22/18 @ 20:52 by Tiffany Villeda) Status post radiation therapy (Acute) - Tobacco History Smoking Status: Former smoker - Alcohol History How Often Do You Have a Drink Containing Alcohol: Never - Substance Use History Substance History: No History of Abuse - Travel History Recent Travel in the [facility] Within the Last 8 Weeks: No Recent Travel Out of the Country Within the Last 8 Weeks: No - Immunization History Tetanus Immunization: <5 Years Hx Influenza Vaccine This Season: Yes Medications and Allergies Active Medications: Active Medications Sodium Chloride (Ns Flush) 2 ml IV.FLUSH PRN PRN PRN Reason: FLUSH AFTER USING IV ACCESS Last Admin: 04/22/18 23:10 Dose: 2 ml Allergies Allergy/AdvReac Type Severity Reaction Status Date / Time No Known Allergies Allergy Unverified 01/13/18 21:21 Home Medications Medication Instructions Recorded Confirmed Type bupropion HCl [Wellbutrin XL] 300 mg PO QAM 04/22/18 04/22/18 History fentanyl 1 patch TRANSDERMAL Q72H 04/22/18 04/22/18 History lactulose 10 g PO TID 04/22/18 04/22/18 History lithium carbonate 300 mg PO TID 04/22/18 04/22/18 History oxycodone 20 mg PO Q12H 04/22/18 04/22/18 History quetiapine [Seroquel] 25 mg PO BID 04/22/18 04/22/18 History sennosides [senna] 8.6 mg PO BID PRN 04/22/18 04/22/18 History Exam Vital signs: Vital Signs 04/22/18 20:20 04/22/18 20:28 04/22/18 20:51 Temperature 99.5 F 99.0 F Pulse Rate 81 68 Respiratory Rate 20 20 Blood Pressure 175/79 H 168/72 H Pulse Oximetry 100 99 98 Intake & Output 04/22/18 04/22/18 04/23/18 06:59 18:59 06:59 Intake Total 1000 / 1000 Balance 1000 / 1000 Weight 65.771 kg Intake: IV 1000 / 1000 NS Inj 1,000 ML @ Wide Open IV. 1000 / 1000 SIG BOLUS ONE Rx#:[id number] Narrative: PE: GENERAL: Thin, cachectic, chronically ill-appearing middle-aged white male, trying to get up and out of bed. Daughters at bedside. HEENT: PERRLA, EOMI. No scleral icterus or conjunctival pallor. No lid lag or facial droop. CARDIOVASCULAR: Regular rate and rhythm. No obvious murmurs to auscultation. No chest tenderness to palpation. RESPIRATORY: No obvious rhonchi or wheezing. Clear to auscultation. Breath sounds equal bilaterally. GASTROINTESTINAL: Abdomen soft, non-tender, nondistended. BS normal. MUSCULOSKELETAL: Extremities without clubbing, cyanosis, or edema. No obvious deformities. NEUROLOGICAL: Awake, alert, answering few questions appropriately, but confused. No focal neurologic deficits. Moving both upper and lower extremities spontaneously. Results - Labs CBC & Chem 7: 04/22/18 20:40 04/22/18 20:40 Labs: Short CBC 04/22/18 Range/Units 20:40 WBC 10.1 (4.0-11.0) th/mm3 Hgb 11.3 L (13.0-17.0) gm/dL Hct 33.3 L (39.0-51.0) % Plt Count 223 (150-450) th/mm3 BMP 04/22/18 20:40 Sodium 142 Potassium 3.9 Chloride 107 Carbon Dioxide 25.7 BUN 40 H Creatinine 1.45 H Calcium 11.7 H* Cardiac Enzymes 04/22/18 Range/Units 20:40 Total Creatine Kinase 61 (39-308) U/L Liver Function 04/22/18 Range/Units 20:40 Total Bilirubin 0.5 (0.2-1.0) mg/dL AST 16 (15-37) U/L ALT 18 (12-78) U/L Alkaline Phosphatase 96 (45-117) U/L Albumin 4.0 (3.4-5.0) g/dL Urine 04/22/18 Range/Units 20:35 Urine Color Yellow (Yellw/Straw) Urine Clarity Clear (Clear) Urine pH 7.0 (5.0-8.5) Ur Specific [place] 1.011 (1.002-1.035) Urine Protein Negative (Neg-Trace) mg/dL Urine Glucose (UA) Negative (Negative) mg/dL - Imaging Impressions Head CT 04/22/18 20:21 CONCLUSION: 1. Negative noncontrast head CT. Caprini VTE Risk Assessment Caprini VTE Risk Assessment: No/Low Risk (score <= 1) Caprini Risk Assessment Model: Point Value = 1 Point Value = 2 Point Value = 3 Point Value = 5 Age 41-60 Minor surgery BMI > 25 kg/m2 Swollen legs Varicose veins or History of unexplained or recurrent spontaneous Oral contraceptives or hormone replacement Sepsis (< 1 month) Serious lung disease, including pneumonia (< 1 month) Abnormal pulmonary function Acute myocardial infarction Congestive heart failure (< 1 month) History of inflammatory bowel disease Medical patient at bed rest Age 61-74 Arthroscopic surgery Major open surgery (> 45 min) Laparoscopic surgery (> 45 min) Malignancy Confined to bed (> 72 hours) Immobilizing plaster cast Central venous access Age >= 75 History of VTE Family history of VTE Factor V Leiden Prothrombin [id number] Lupus anticoagulant Anticardiolipin antibodies Elevated serum homocysteine Heparin-induced thrombocytopenia Other congenital or acquired thrombophilia Stroke (< 1 month) Elective arthroplasty Hip, pelvis, or leg fracture Acute spinal cord injury (< 1 month) Prophylaxis Regimen: Total Risk Factor Score Risk Level Prophylaxis Regimen 0-1 Low Early ambulation 2 Moderate Order ONE of the following: *Sequential Compression Device (SCD) *Heparin 5000 units SQ BID 3-4 Higher Order ONE of the following medications: *Heparin 5000 units SQ TID *Enoxaparin/Lovenox 40 mg SQ daily (WT < 150 kg, CrCl > 30 mL/min) *Enoxaparin/Lovenox 30 mg SQ daily (WT < 150 kg, CrCl > 10-29 mL/min) *Enoxaparin/Lovenox 30 mg SQ BID (WT < 150 kg, CrCl > 30 mL/min) AND/OR *Sequential Compression Device (SCD) 5 or more Highest Order ONE of the following medications: *Heparin 5000 units SQ TID (Preferred with Epidurals) *Enoxaparin/Lovenox 40 mg SQ daily (WT < 150 kg, CrCl > 30 mL/min) *Enoxaparin/Lovenox 30 mg SQ daily (WT < 150 kg, CrCl > 10-29 mL/min) *Enoxaparin/Lovenox 30 mg SQ BID (WT < 150 kg, CrCl > 30 mL/min) AND *Sequential Compression Device (SCD) Assessment and Plan - Assessment (1) Encephalopathy Code(s): G93.40 - Encephalopathy, unspecified Status: Acute (2) Oropharyngeal cancer Code(s): C10.9 - Malignant neoplasm of oropharynx, unspecified Status: Acute (3) Bipolar disorder Code(s): F31.9 - Bipolar disorder, unspecified Status: Acute (4) Hypercalcemia Code(s): E83.52 - Hypercalcemia Status: Acute (5) ALYSHA (acute kidney injury) Code(s): N17.9 - Acute kidney failure, unspecified Status: Acute - Plan A/P: 1. Encephalopathy: likely multifactorial-acute dehydration/medication/ progression of underlying ca. CT Head w/ no acute findings, images reviewed by me. Neuro checks. Pt trying to get out of bed, concern for his safety, will order Sitter. 2. ALYSHA: Creatinine 1.45, previously 0.85 on 01/20/18, U/a negative for UTI, continue IVF for hydration, repeat labs in am. 3. Hypercalcemia: Ca 11.7, secondary to dehydration from decreased PO intake. IVF for hydration, repeat labs. 4. Oropharyngeal CA: Daughter states "cancer went away", s/p chemo/radiation w / Dr. De Paz in [facility] and Dr. Walton, had PET scan this past Tuesday however daughter unsure if scan completed due to pt's AMS. Previously on Hospice, however Daughter took him off 1wk ago, wants aggressive treatment, states "he wants to live". Will consult Oncology for further evaluation/recommendations. 5. Bipolar Disorder: [place] supratherapeutic at 1.8, will hold. 6. DVT Prophylaxis: SCD/Teds 7. Social work for d/c planning as needed. 8. Case discussed w/ ER physician at length, labs/records/imaging reviewed by me.
[2018-04-23] MEDS: Sod Chloride 0.9% Inj 1,000 ML IV.CONT SCH ×3 (01:56→23:24)
[2018-04-23 08:23] LABS: Baso % (Auto) 0.1 % (0.0-2.0); Eos # (Auto) 0.1 th/mm3 (0.0-0.4); Eos % (Auto) 1.1 % (0.0-4.0); Hematocrit 31.9 % (39.0-51.0); Lymph # (Auto) 0.5 th/mm3 (1.0-4.8); Lymph % (Auto) 5.5 % (9.0-44.0); Mean Corpuscular HGB Conc 34.4 % (32.0-36.0); Mean Corpuscular Hemoglobin 34.6 pg (27.0-34.0); Mean Corpuscular Volume 100.6 fL (80.0-100.0); Mean Platelet Volume 8.6 fL (7.0-11.0); Mono # (Auto) 0.5 th/mm3 (0.0-0.9); Mono % (Auto) 6.2 % (0.0-8.0); Neut # (Auto) 7.3 th/mm3 (1.8-7.7); Neut % (Auto) 87.1 % (16.0-70.0); Platelet Count 205 th/mm3 (150-450); Red Blood Count 3.17 mil/mm3 (4.50-5.90); Red Cell Distribution Width 12.9 % (11.6-17.2); White Blood Count 8.3 th/mm3 (4.0-11.0)
[2018-04-23 08:56] LABS: Alanine Aminotransferase 19 U/L (12-78); Albumin 3.8 g/dL (3.4-5.0); Alkaline Phosphatase 95 U/L (45-117); Anion Gap 8 meq/L (5-15); Aspartate Aminotransferase 13 U/L (15-37); Blood Urea Nitrogen 30 mg/dL (7-18); Calcium 11.5 mg/dL (8.5-10.1); Carbon Dioxide 25.4 meq/L (21.0-32.0); Chloride 115 meq/L (98-107); Glomerular Filtration Rate 59 mL/min (>89); Glucose,Random 72 mg/dL (74-106); Potassium 3.6 meq/L (3.5-5.1); Sodium 148 meq/L (136-145); Total Protein 7.4 g/dL (6.4-8.2)
[2018-04-23] MEDS: buPROPion 150 MG 12 HR Tablet PO SCH ×2 (11:13→21:20)
[2018-04-23] MEDS: Senna/Docusate Sodium 8.6/50 MG Tablet PO SCH ×2 (11:14→21:20)
[2018-04-23] MEDS: QUEtiapine 25 MG Tablet PO SCH ×2 (11:14→21:20)
--- NOTE | 2018-04-23 13:02 | P.PN ---
Subjective Interval history: Follow-up visit encephalopathy, acute kidney injury. Patient seen and examined today laying in bed. On restraints. As per staff patient has been confused throughout the day and last night. Attempting to climb out of bed. Patient is incoherent. Does not follow commands. Responds to some questions. He knows his full name. Other slurring his words, sometimes sentences does not make sense. Physical Exam Vital signs: Vital Signs 04/22/18 20:20 04/22/18 20:28 04/22/18 20:51 Temperature 99.5 F 99.0 F Pulse Rate 81 68 Respiratory Rate 20 20 Blood Pressure 175/79 H 168/72 H Pulse Oximetry 100 99 98 04/23/18 00:28 04/23/18 00:32 04/23/18 08:00 Temperature 98.2 F Pulse Rate 86 86 60 Respiratory Rate 20 20 22 Blood Pressure 126/72 122/76 139/73 Pulse Oximetry 100 Intake & Output 04/22/18 04/23/18 04/23/18 18:59 06:59 18:59 Intake Total 1000 / 1000 120 / 120 Output Total 300 / 300 200 / 200 Balance 700 / 700 -80 / -80 Weight 65.77 kg Intake: IV 1000 / 1000 NS Inj 1,000 ML @ Wide Open IV. 1000 / 1000 SIG BOLUS ONE Rx#:[id number] Oral 120 / 120 Output: Urine 300 / 300 200 / 200 Other: Weight On Admission 65.77 kg Narrative: GENERAL: This is a well-nourished, well-developed patient, in no apparent distress. SKIN: Warm and dry. HEENT: Normocephalic. Pupils equal round and reactive. Nose without bleeding. Airway patent. NECK: Trachea midline. CARDIOVASCULAR: Regular rate and rhythm without murmurs, gallops, or rubs. RESPIRATORY: Clear to auscultation. Breath sounds equal bilaterally. No wheezes , rales, or rhonchi. GASTROINTESTINAL: Abdomen soft, nondistended. Bowel Sounds normoactive x4. Mild tenderness midepigastric area. MUSCULOSKELETAL: Extremities without clubbing, cyanosis, or edema. NEUROLOGICAL: Awake and alert. Oriented to person. Confuse. Moves all extremities. Slurred to normal to incomprehensible speech. - Urinary Catheter Management Straight Cath placed during this visit: yes Reason for continuing: Not indwelling catheter Insertion date: 04/22/18 Insertion time: 20:50 Results - Labs CBC & Chem 7: 04/23/18 07:39 04/23/18 07:39 Laboratory Results - last 24 hr 04/22/18 04/22/18 04/22/18 20:35 20:35 20:40 WBC 10.1 RBC 3.32 L Hgb 11.3 L Hct 33.3 L MCV 100.0 MCH 33.9 MCHC 33.9 RDW 13.0 Plt Count 223 MPV 8.7 Neut % (Auto) 88.4 H Lymph % (Auto) 5.1 L Gillespie % (Auto) 5.6 Eos % (Auto) 0.7 Baso % (Auto) 0.2 Neut # (Auto) 8.9 H Lymph # (Auto) 0.5 L Gillespie # (Auto) 0.6 Eos # (Auto) 0.1 Baso # (Auto) 0.0 WBC Differential . Differential Comment Auto diff final PT INR APTT Sodium Potassium Chloride Carbon Dioxide Anion Gap BUN Creatinine Estimated GFR Random Glucose Calcium Prot Corrected Calcium Total Bilirubin AST ALT Alkaline Phosphatase Ammonia Total Creatine Kinase Total Protein Albumin TSH Urine Color Yellow Urine Clarity Clear Urine pH 7.0 Ur Specific Hamilton 1.011 Urine Protein Negative Urine Glucose (UA) Negative Urine Ketones Negative Urine Occult Blood Negative Urine Nitrate Negative Urine Bilirubin Negative Urine Urobilinogen Less than 2 Ur Leukocyte Esterase Trace H Urine RBC Less than 1 Urine WBC 7 H Urine Mucus Few H Micro UA Comment Culture not ind Urine Culture Comments Culture not ind Urine Opiates Screen Neg Ur Barbiturates Screen Neg Ur Amphetamines Screen Neg U Benzodiazepines Scrn Neg [place] Urine Cocaine Screen Neg U Cannabinoids Screen Neg 04/22/18 04/22/18 04/22/18 20:40 20:40 20:40 WBC RBC Hgb Hct MCV MCH MCHC RDW Plt Count MPV Neut % (Auto) Lymph % (Auto) Gillespie % (Auto) Eos % (Auto) Baso % (Auto) Neut # (Auto) Lymph # (Auto) Gillespie # (Auto) Eos # (Auto) Baso # (Auto) WBC Differential Differential Comment PT 11.2 INR 1.1 APTT 23.8 L Sodium 142 Potassium 3.9 Chloride 107 Carbon Dioxide 25.7 Anion Gap 9 BUN 40 H Creatinine 1.45 H Estimated GFR 49 L Random Glucose 90 Calcium 11.7 H* Prot Corrected Calcium 11.3 H Total Bilirubin 0.5 AST 16 ALT 18 Alkaline Phosphatase 96 Ammonia 15 Total Creatine Kinase 61 Total Protein 7.8 Albumin 4.0 TSH 1.620 Urine Color Urine Clarity Urine pH Ur Specific Hamilton Urine Protein Urine Glucose (UA) Urine Ketones Urine Occult Blood Urine Nitrate Urine Bilirubin Urine Urobilinogen Ur Leukocyte Esterase Urine RBC Urine WBC Urine Mucus Micro UA Comment Urine Culture Comments Urine Opiates Screen Ur Barbiturates Screen Ur Amphetamines Screen U Benzodiazepines Scrn [place] Urine Cocaine Screen U Cannabinoids Screen 04/22/18 04/23/18 04/23/18 20:40 07:39 07:39 WBC 8.3 RBC 3.17 L Hgb 11.0 L Hct 31.9 L MCV 100.6 H MCH 34.6 H MCHC 34.4 RDW 12.9 Plt Count 205 MPV 8.6 Neut % (Auto) 87.1 H Lymph % (Auto) 5.5 L Gillespie % (Auto) 6.2 Eos % (Auto) 1.1 Baso % (Auto) 0.1 Neut # (Auto) 7.3 Lymph # (Auto) 0.5 L Gillespie # (Auto) 0.5 Eos # (Auto) 0.1 Baso # (Auto) 0.0 WBC Differential . Differential Comment Auto diff final PT INR APTT Sodium 148 H Potassium 3.6 Chloride 115 H D Carbon Dioxide 25.4 Anion Gap 8 BUN 30 H Creatinine 1.22 Estimated GFR 59 L Random Glucose 72 L Calcium 11.5 H Prot Corrected Calcium Total Bilirubin 0.7 AST 13 L ALT 19 Alkaline Phosphatase 95 Ammonia Total Creatine Kinase Total Protein 7.4 Albumin 3.8 TSH Urine Color Urine Clarity Urine pH Ur Specific Hamilton Urine Protein Urine Glucose (UA) Urine Ketones Urine Occult Blood Urine Nitrate Urine Bilirubin Urine Urobilinogen Ur Leukocyte Esterase Urine RBC Urine WBC Urine Mucus Micro UA Comment Urine Culture Comments Urine Opiates Screen Ur Barbiturates Screen Ur Amphetamines Screen U Benzodiazepines Scrn [place] 1.8 H Urine Cocaine Screen U Cannabinoids Screen - Imaging Impressions Head CT 04/22/18 20:21 CONCLUSION: 1. Negative noncontrast head CT. 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 Encephalopathy: likely multifactorial-acute dehydration/medication/progression of underlying ca. -CT Head w/ no acute findings -Neuro checks. Pt trying to get out of bed, concern for his safety, restraints in place -Seroquel BID, Ativan/ Haldol PRN ALYSHA: Creatinine 1.45, previously 0.85 on 01/20/18 -U/a negative for UTI -continue IVF for hydration -Improved PROSTHODONTIST/EDUCATOR 145 --> 1.22 Hypercalcemia: Ca 11.7 -secondary to dehydration from decreased PO intake. -IVF for hydration -Improved Ca11.7 -->11.5 Oropharyngeal CA: Per review of records, Daughter states "cancer went away", s/ p chemo/radiation w/ Dr. De Paz in [facility] and Dr. Walton, had PET scan this past Tuesday however daughter unsure if scan completed due to pt's AMS. -Previously on Hospice, however Daughter took him off 1wk ago, wants aggressive treatment, states "he wants to live". -Consult Oncology for further evaluation/recommendations. Bipolar Disorder: [place] supratherapeutic at 1.8, will hold. -Repeat levels DVT Prophylaxis: SCD/Teds Code Status: Full Code Discussed Condition With: Nursing, Dr. Hameed Discharge Planning: Plan to DC home when clinically improved. Pending oncology consult.
--- NOTE | 2018-04-23 15:28 | ECG ---
Date Performed: 04/22/2018 Time Performed: 22:19:10 PTAGE: 68 years EKG: SINUS BRADYCARDIA WITH SINUS ARRHYTHMIA NONSPECIFIC T-WAVE ABNORMALITY BORDERLINE ECG Since PREVIOUS TRACING , sinus arrythmia is new. PREVIOUS TRACIN01/16/2018 23.25 DOCTOR: Steffen Newton Interpretating Date/Time 04/23/2018 15:31:36
--- NOTE | 2018-04-23 16:57 | P.CON ---
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 He has undergone concurrent chemotherapy and radiation treatments. He sees Dr. De Paz who is his oncologist. Radiation treatments were given under the care of Dr. mathews. Most recently patient was admitted at [place] with radiation induced esophagitis and significant oral mucositis. He had refused PEG tube placement. At that time, he was also neutropenic and received Neupogen support. He was on hospice after his hospital discharge but was taken 1 week ago he had decided that he would like to the treatment was taken off the hospice approximately 1 week ago. He had decided that he would like to receive aggressive treatment. A PET scan was ordered in the outpatient setting. However this could not be completed due to progressive altered mental status. Patient has been experiencing decreased oral intake and worsening confusion. He was brought to the emergency room. A CT of the head did not show any acute abnormalities. He continues to remain confused. He is on lithium and lithium levels were supratherapeutic. Patient was also found to be hypercalcemic with a calcium level of 11.7. Initial workup included a UA and urine culture UA which was negative. Patient continues to remain confused. He is in restraints. He has acute renal failure. He is incoherent and does not follow commands. He has slurred speech. Review of Systems All other systems reviewed negative except as stated in HPI PMFSH - History History Provided By: Patient - Medical History Medical History: Medical History (Last Reviewed 04/23/18 @ 16:49 by Mino Barajas MD) Cancer (Acute) Anorexia (Acute) Anxiety (Acute) - Surgical History Surgical History: Surgical History (Last Updated 04/22/18 @ 20:52 by Tiffany Villeda) Status post radiation therapy (Acute) - Tobacco History Smoking Status: Unknown if ever smoked - Alcohol History How Often Do You Have a Drink Containing Alcohol: Unable to Obtain - Substance Use History Substance History: Unable to Obtain - Travel History Recent Travel in the [place] Within the Last 8 Weeks: No Recent Travel Out of the Country Within the Last 8 Weeks: No - Immunization History Tetanus Immunization: <5 Years Hx Influenza Vaccine This Season: Yes Medications and Allergies Active Medications: Active Medications Acetaminophen (Tylenol) 650 mg PO Q4H PRN PRN Reason: Temp > 100.4 Al Hydroxide/Mg Hydroxide (Milk Of Magnesia Liq) 30 ml PO Q12H PRN PRN Reason: Mild Constipation Bisacodyl (Dulcolax Supp) 10 mg RECTAL DAILY PRN PRN Reason: SEVERE CONSITIPATION Bupropion HCl (Wellbutrin Sr) 150 mg PO BID [facility] Last Admin: 04/23/18 11:13 Dose: 150 mg Fentanyl (Duragesic 25 Mcg Patch.72hr) 1 patch T-DERMAL Q72H [facility] Last Admin: 04/23/18 07:44 Dose: Not Given Sodium Chloride (Ns Inj) 1,000 mls @ 100 mls/hr IV.CONT .Q10H [facility] Last Admin: 04/23/18 12:40 Dose: Not Given Lactulose (Lactulose Liq) 30 ml PO DAILY PRN PRN Reason: SEVERE CONSITIPATION Lactulose (Lactulose Liq) 15 ml PO TID [facility] Last Admin: 04/23/18 13:17 Dose: 15 ml Lorazepam (Ativan Inj) 1 mg IV.PUSH Q4H PRN PRN Reason: AGITATION Ondansetron HCl (Zofran Odt) 4 mg PO Q6H PRN PRN Reason: NAUSEA OR VOMITING Quetiapine Fumarate (Seroquel) 25 mg PO BID [facility] Last Admin: 04/23/18 11:14 Dose: 25 mg Senna/Docusate Sodium (Shelby-Colace) 1 tab PO BID [facility] Last Admin: 04/23/18 11:14 Dose: 1 tab Sennosides (Senokot) 17.2 mg PO Q12H PRN PRN Reason: Moderate Constipation Sodium Chloride (Ns Flush) 2 ml IV.FLUSH PRN PRN PRN Reason: FLUSH AFTER USING IV ACCESS Last Admin: 04/22/18 23:10 Dose: 2 ml Temazepam (Restoril) 15 mg PO HS PRN PRN Reason: INSOMNIA Allergies Allergy/AdvReac Type Severity Reaction Status Date / Time No Known Allergies Allergy Unverified 01/13/18 21:21 Home Medications Medication Instructions Recorded Confirmed Type bupropion HCl [Wellbutrin XL] 300 mg PO QAM 04/22/18 04/22/18 History fentanyl 1 patch TRANSDERMAL Q72H 04/22/18 04/22/18 History lactulose 10 g PO TID 04/22/18 04/22/18 History lithium carbonate 300 mg PO TID 04/22/18 04/22/18 History oxycodone 20 mg PO Q12H 04/22/18 04/22/18 History quetiapine [Seroquel] 25 mg PO BID 04/22/18 04/22/18 History sennosides [senna] 8.6 mg PO BID PRN 04/22/18 04/22/18 History Physical Exam Vital signs: Vital Signs 04/22/18 20:20 04/22/18 20:28 04/22/18 20:51 Temperature 99.5 F 99.0 F Pulse Rate 81 68 Respiratory Rate 20 20 Blood Pressure 175/79 H 168/72 H Pulse Oximetry 100 99 98 04/23/18 00:28 04/23/18 00:32 04/23/18 08:00 Temperature 98.2 F Pulse Rate 86 86 60 Respiratory Rate 20 20 22 Blood Pressure 126/72 122/76 139/73 Pulse Oximetry 100 04/23/18 12:00 Temperature 97.8 F Pulse Rate 72 Respiratory Rate 22 Blood Pressure 136/66 Pulse Oximetry 98 Intake & Output 04/22/18 04/23/18 04/23/18 18:59 06:59 18:59 Intake Total 1000 / 1000 120 / 120 Output Total 300 / 300 200 / 200 Balance 700 / 700 -80 / -80 Weight 65.77 kg Intake: IV 1000 / 1000 NS Inj 1,000 ML @ Wide Open IV. 1000 / 1000 SIG BOLUS ONE Rx#:[id number] Oral 120 / 120 Output: Urine 300 / 300 200 / 200 Other: Weight On Admission 65.77 kg - Constitutional chronically ill appearing - Routine HEENT Exam Head: Present: normocephalic, atraumatic - Routine Neck Exam Present: supple - Routine Respiratory Exam Present: CTA bilaterally - Routine Cardiovascular Exam Present: RRR, S1, S2 - Routine Abdominal Exam Present: soft, normoactive bowel sounds - Routine Extremities Exam Present: pulses intact, normal capillary refill - Routine Skin Exam Present: intact, dry, warm - Urinary Catheter Management Straight Cath placed during this visit: yes Reason for continuing: Not indwelling catheter Insertion date: 04/22/18 Insertion time: 20:50 Assessment and Plan - Assessment (1) Altered mental status Code(s): R41.82 - Altered mental status, unspecified Status: Acute (2) Hypercalcemia Code(s): E83.52 - Hypercalcemia Status: Acute (3) ALYSHA (acute kidney injury) Code(s): N17.9 - Acute kidney failure, unspecified Status: Acute (4) Encephalopathy Code(s): G93.40 - Encephalopathy, unspecified Status: Acute (5) Oropharyngeal cancer Code(s): C10.9 - Malignant neoplasm of oropharynx, unspecified Status: Acute (6) Bipolar disorder Code(s): F31.9 - Bipolar disorder, unspecified Status: Acute (7) Status post radiation therapy Code(s): Z92.3 - Personal history of irradiation Status: Acute - Plan This is a 68-year-old male who has a history of oropharyngeal cancer he has undergone concurrent chemotherapy and radiation treatments. He had a decline in his performance status and he was placed on hospice. He was taken off the hospice approximately 1 week ago. He has been becoming increasingly confused and agitated. He was brought to the emergency room. #1 acute encephalopathy likely due metabolic reasons. Patient has hypercalcemia. He also has acute kidney injury. Possibly medication effect vs Progressive disease. CT of the head was negative. I would recommend obtaining an MRI of the brain to rule out any metastatic disease. Start calcitonin. Continue IV hydration We will consider giving pamidronate Obtain copy of the PET scan and notes from his oncologist. We will consider obtaining CT scans of the head and neck chest and abdomen and pelvis if the PET scan has not been completed. #2 history of locally advanced oropharyngeal cancer status post concurrent chemotherapy and radiation treatments. If he has progressive disease he is not a candidate for any further treatment due to poor PFS. Palliative care should be consulted to address goals of care and possible transition to hospice #3 acute kidney injury likely prerenal, IV hydration. Consider abdominal ultrasound to rule out any obstruction. (1) Altered mental status Qualifiers: Altered mental status type: unspecified Qualified Code(s): R41.82 - Altered mental status, unspecified
[2018-04-23 18:42] LABS: % Iron Saturation 26.6 % (20-50); Iron 63 mcg/dL (65-175); Total Iron Binding Capacity 237 mcg/dL (250-450)
[2018-04-23 19:07] LABS: Ferritin 370 ng/mL (26-388); Vitamin B12 1236 pg/mL (193-986)
[2018-04-24 06:11] LABS: Albumin 4.3 g/dL (3.4-5.0); Calcium 12.1 mg/dL (8.5-10.1); Carbon Dioxide 22.7 meq/L (21.0-32.0); Potassium 3.5 meq/L (3.5-5.1); Total Protein 8.3 g/dL (6.4-8.2)
[2018-04-24] MEDS: Sod Chloride 0.9% Inj 1,000 ML IV.CONT SCH (06:52)
[2018-04-24] MEDS: Sodium Chloride 0.45 % Inj 1,000 ML IV.CONT SCH ×2 (08:24→17:55)
[2018-04-24] MEDS: Senna/Docusate Sodium 8.6/50 MG Tablet PO SCH ×2 (08:25→20:24)
[2018-04-24] MEDS: QUEtiapine 25 MG Tablet PO SCH ×2 (08:25→20:24)
[2018-04-24] MEDS: buPROPion 150 MG 12 HR Tablet PO SCH ×2 (08:25→20:24)
--- NOTE | 2018-04-24 09:55 | P.PNONC ---
Subjective Interval history: Afebrile Patient remains in four-point restraints Tells me "no way I am in [place]" Denies acute complaints Swallowing okay Objective Vital Signs/Intake & Output: Vital Signs 04/23/18 12:00 04/23/18 16:00 04/23/18 19:38 Temperature 97.8 F 98.0 F Pulse Rate 72 75 Respiratory Rate 22 Blood Pressure 136/66 141/69 H Pulse Oximetry 98 22 L 93 L 04/23/18 20:00 04/24/18 00:00 04/24/18 04:00 Temperature 97.6 F 97.6 F 97.6 F Pulse Rate 56 L 61 72 Respiratory Rate 18 20 22 Blood Pressure 179/77 H 120/64 Pulse Oximetry 100 99 100 04/24/18 05:40 Temperature 97.8 F Pulse Rate 80 Respiratory Rate 18 Blood Pressure 136/68 Pulse Oximetry Intake & Output 04/23/18 04/24/18 04/24/18 18:59 06:59 18:59 Intake Total 1120 / 1120 580 / 580 Output Total 200 / 200 Balance 920 / 920 580 / 580 Intake: IV 1000 / 1000 NS Inj 1,000 ML @ 100 mls/hr IV 1000 / 1000 .CONT .Q10H [facility] Rx#:[id number] Oral 120 / 120 580 / 580 Output: Urine 200 / 200 Other: # Voids 4 Result Diagrams: 04/23/18 07:39 04/24/18 05:00 Laboratory Results: Laboratory Results - last 24 hr 04/23/18 04/24/18 07:39 05:00 Sodium 148 H Potassium 3.5 Chloride 118 H Carbon Dioxide 22.7 Anion Gap 7 BUN 26 H Creatinine 1.09 Estimated GFR 68 L Random Glucose 66 L Calcium 12.1 H* Prot Corrected Calcium 11.3 H Iron 63 L TIBC 237 L % Saturation 26.6 Ferritin 370 Total Bilirubin 0.6 AST 22 ALT 22 Alkaline Phosphatase 105 Total Protein 8.3 H D Albumin 4.3 Vitamin B12 1236 H Folate Greater than 20.0 H Medications: Active Medications Generic Name Dose Route Start Last Admin Trade Name Freq PRN Reason Stop Dose Admin Bupropion HCl 150 mg 04/23/18 09:00 04/24/18 08:25 Wellbutrin Sr PO 150 mg BID [facility] Administration Fentanyl 1 patch 04/23/18 00:00 04/23/18 07:44 Duragesic 25 Mcg Patch.72hr T-DERMAL Not Given Q72H [facility] Sodium Chloride 1,000 mls @ 100 mls/hr 04/24/18 07:45 04/24/18 08:24 1 Normal Saline Inj IV.CONT 100 mls/hr .Q10H [facility] Administration Lactulose 15 ml 04/23/18 09:00 04/23/18 18:22 Lactulose Liq PO 15 ml TID FRANKY Administration Quetiapine Fumarate 25 mg 04/23/18 09:00 04/24/18 08:25 Seroquel PO 25 mg BID FRANKY Administration Senna/Docusate Sodium 1 tab 04/23/18 09:00 04/24/18 08:25 Shelby-Colace PO 1 tab BID [facility]Y Administration Sodium Chloride 2 ml 04/22/18 20:21 04/23/18 21:20 Ns Flush IV.FLUSH 2 ml PRN PRN Administration FLUSH AFTER USING IV ACCESS Objective Remarks: GENERAL: Cachectic older male resting in bed in no obvious distress SKIN: Warm and dry. HEAD: Normocephalic. Bitemporal wasting EYES: No scleral icterus. No injection or drainage. NECK: Supple, trachea midline. No JVD or lymphadenopathy. CARDIOVASCULAR: Regular rate and rhythm without murmurs. RESPIRATORY: Clear but diminished anteriorly. GASTROINTESTINAL: Abdomen soft, non-tender, nondistended. EXTREMITIES: No cyanosis, or edema. MUSCULOSKELETAL: Muscle wasting NEUROLOGICAL: Confused. Follows commands. Moving all extremities. Assessment/Plan (1) Altered mental status Code(s): R41.82 - Altered mental status, unspecified Status: Acute (2) Hypercalcemia Code(s): E83.52 - Hypercalcemia Status: Acute (3) ALYSHA (acute kidney injury) Code(s): N17.9 - Acute kidney failure, unspecified Status: Acute (4) Encephalopathy Code(s): G93.40 - Encephalopathy, unspecified Status: Acute (5) Oropharyngeal cancer Code(s): C10.9 - Malignant neoplasm of oropharynx, unspecified Status: Acute (6) Bipolar disorder Code(s): F31.9 - Bipolar disorder, unspecified Status: Acute (7) Status post radiation therapy Code(s): Z92.3 - Personal history of irradiation Status: Acute - Plan 68-year-old male with history of head neck cancer admitted with altered mental status. 1. Patient has recently had a PET scan on April 19 that showed a dramatic response to therapy with a marked decrease in primary mass and resolution of previously seen adenopathy. No metastatic disease was identified in the chest, abdomen or pelvis. 2. MRI of the head to rule out metastatic disease to the brain. Altered mental status possibly due to lithium toxicity versus metastatic disease. 3. Continue IV fluids. Renal insufficiency improving. The patient will start on calcitonin today for hypercalcemia. Consider pamidronate if calcium level not improving. 4. The patient's performance status remains quite poor. Once acute issues have resolved he will follow-up with his oncologist Dr. De Paz at [facility] to discuss future treatment. - Attending Statement he exam, history, and the medical decision-making described in the above note were completed with the assistance of the mid-level provider. I reviewed and agree with the findings presented. I attest that I had a [id number] encounter with the patient on the same day, and personally performed and documented my assessment and findings in the medical record. some improvement in mental status, still confused able to tell me his name, , where he lives, and that he is in a hospital. Hypercalcemia persists continue IV fluids and Calcitonin PTH and PTHrp pending will consider CT scan chest, abdomen/pelvis and neck spft tissues if Cr continues to improve (1) Altered mental status Qualifiers: Altered mental status type: unspecified Qualified Code(s): R41.82 - Altered mental status, unspecified
--- NOTE | 2018-04-24 10:40 | P.PN ---
Subjective Interval history: Follow-up visit encephalopathy, acute kidney injury. Spoke with nurse reports patient will have MRI of brain today, restrained this morning although calm with nurse. Patient is seen and examined resting in bed, appears calm and in no acute distress. He is awake, alert, oriented to self, and current president. He complains of a headache this morning, states that he fell at home and has had a headache ever since. Denies any fevers, chills, nausea, vomiting, diarrhea, shortness of breath, cough, chest pain or dysuria. Physical Exam Vital signs: Vital Signs 04/23/18 12:00 04/23/18 16:00 04/23/18 19:38 Temperature 36.6 C 36.7 C Pulse Rate 72 75 Respiratory Rate 22 Blood Pressure 136/66 141/69 H Pulse Oximetry 98 22 L 93 L 04/23/18 20:00 04/24/18 00:00 04/24/18 04:00 Temperature 36.4 C 36.4 C 36.4 C Pulse Rate 56 L 61 72 Respiratory Rate 18 20 22 Blood Pressure 179/77 H 120/64 Pulse Oximetry 100 99 100 04/24/18 05:40 Temperature 36.6 C Pulse Rate 80 Respiratory Rate 18 Blood Pressure 136/68 Pulse Oximetry Intake & Output 04/23/18 04/24/18 04/24/18 18:59 06:59 18:59 Intake Total 1120 / 1120 580 / 580 Output Total 200 / 200 Balance 920 / 920 580 / 580 Intake: IV 1000 / 1000 NS Inj 1,000 ML @ 100 mls/hr IV 1000 / 1000 .CONT .Q10H FRANKY Rx#:[id number] Oral 120 / 120 580 / 580 Output: Urine 200 / 200 Other: # Voids 4 Narrative: GENERAL: This is a well-nourished, well-developed patient, in no apparent distress. SKIN: Warm and dry. HEENT: Normocephalic. Pupils equal round and reactive. Nose without bleeding. Airway patent. NECK: Trachea midline. CARDIOVASCULAR: Regular rate and rhythm without murmurs, gallops, or rubs. RESPIRATORY: Clear to auscultation. Breath sounds equal bilaterally. No wheezes , rales, or rhonchi. GASTROINTESTINAL: Abdomen soft, nontender, nondistended. Bowel Sounds normoactive x4. MUSCULOSKELETAL: Extremities without clubbing, cyanosis, or edema. NEUROLOGICAL: Awake and alert. Oriented to person. Confuse. Moves all extremities. Speech is clear. - Urinary Catheter Management Straight Cath placed during this visit: yes Reason for continuing: Not indwelling catheter Insertion date: 04/22/18 Insertion time: 20:50 Results - Labs CBC & Chem 7: 04/23/18 07:39 04/24/18 05:00 Laboratory Results - last 24 hr 04/23/18 04/24/18 07:39 05:00 Sodium 148 H Potassium 3.5 Chloride 118 H Carbon Dioxide 22.7 Anion Gap 7 BUN 26 H Creatinine 1.09 Estimated GFR 68 L Random Glucose 66 L Calcium 12.1 H* Prot Corrected Calcium 11.3 H Iron 63 L TIBC 237 L % Saturation 26.6 Ferritin 370 Total Bilirubin 0.6 AST 22 ALT 22 Alkaline Phosphatase 105 Total Protein 8.3 H D Albumin 4.3 Vitamin B12 1236 H Folate Greater than 20.0 H Assessment and Plan - Assessment (1) Encephalopathy Code(s): G93.40 - Encephalopathy, unspecified Status: Acute (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 Encephalopathy: likely multifactorial-acute dehydration/medication/progression of underlying ca. -CT Head w/ no acute findings -Neuro checks. Pt trying to get out of bed, concern for his safety, restraints in place. Attempt to switch patient to a room close to the nurses station. -Continue Seroquel BID, Ativan/ Haldol PRN -Speech today is clear. ALYSHA: Creatinine 1.45, previously 0.85 on 01/20/18 -U/a negative for UTI -continue IVF for hydration -Improved LIFT SUPERVISOR 1.45 --> 1.22-->1.09 Hypercalcemia: Ca 11.7 -secondary to dehydration from decreased PO intake. -IVF for hydration -Improved Ca11.7 -->11.5, patient received 100 units of calcitonin today -Recheck BMP tomorrow Oropharyngeal CA: Per review of records, Daughter states "cancer went away", s/ p chemo/radiation w/ Dr. De Paz in [facility] and Dr. Walton, had PET scan this past Tuesday however daughter unsure if scan completed due to pt's AMS. -Previously on Hospice, however Daughter took him off 1wk ago, wants aggressive treatment, states "he wants to live". -Oncology consulted for further recommendations, appreciate assistance. -MRI of the brain completed 04/24 with moderate central and cortical atrophy with periventricular white matter changes. 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 Bipolar Disorder: [place] supratherapeutic at 1.8, will hold. -Repeat lithium levels pending. DVT Prophylaxis: SCD/Teds Discussed Condition With: Discussed with nurse and case management rn. Discharge Planning: Workup by oncology in progress. CM following, will contact family for possible D /C back to [facility] and rehab.
[2018-04-24] MEDS: Calcitonin Salmon Inj 400 UNIT/2 ML Vial SQ SCH (12:05)
--- NOTE | 2018-04-24 12:25 | MR ---
EXAM DATE: 04/24/2018 12:16 PM EDT AGE/SEX: 68 years / Male INDICATIONS: Confusion. Hx of brain mass. CLINICAL DATA: This is the patient's initial encounter. Patient reports that signs and symptoms have been present for 4 - 6 days and indicates a pain score of 0/10. MEDICAL/SURGICAL HISTORY: . Tongue ca. . Shoulder. COMPARISON: [facility], CT BRAIN W/O CONTRAST, 02/13/2016. . TECHNIQUE: Multiplanar, multisequence examination of the brain was performed without and with 7 ml Ga davist (gadobutrol) contrast as a single exam dose. FINDINGS: History of glomus tumor on the right not covered in this exam. Ventricular size is appropriate. There is no restricted diffusion evident. There are scattered areas of high signal intensity periventricular white matter. There is no parenchymal hemorrhage, acute infa rction or mass lesion. There is no restricted diffusion to suggest ischemia. Posterior fossa is unremarkable. Orbits and paranasal sinuses are unremarkable. There is no abnormal contrast enhancement. Again the previously described glomus tumor on the right i s not covered on this exam. CONCLUSION: 1. Moderate central and cortical atrophy with periventricular white matter changes. 2. 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 Electronically signed by: Sánchez Montesinos MD 04/24/2018 12:24 PM EDT
[2018-04-24] MEDS ORDERED: Gadobutrol PF 7.5 MMOL/7.5 ML Vial (for RAD) IV.SIG ONE (13:33)
[2018-04-25 06:25] LABS: Calcium 10.9 mg/dL (8.5-10.1); Potassium 3.4 meq/L (3.5-5.1)
[2018-04-25] MEDS: QUEtiapine 25 MG Tablet PO SCH ×2 (08:45→22:32)
[2018-04-25] MEDS: Senna/Docusate Sodium 8.6/50 MG Tablet PO SCH ×2 (08:45→22:31)
[2018-04-25] MEDS: buPROPion 150 MG 12 HR Tablet PO SCH ×2 (08:45→22:31)
[2018-04-25] MEDS: Calcitonin Salmon Inj 400 UNIT/2 ML Vial SQ SCH (09:53)
--- NOTE | 2018-04-25 10:36 | P.PN ---
Subjective Interval history: Follow-up visit encephalopathy, acute kidney injury. Patient is seen and examined today resting in bed comfortably and in no acute distress. He is oriented to self, place, and current president. He denies any fevers, chills, nausea, vomiting, diarrhea, cough or shortness of breath. He is requesting blanket since he is cold this morning. Spoke with nurse reports daughter was under the impression that she would be meeting up with palliative care today. Consult for palliative care has been placed today. Physical Exam Vital signs: Vital Signs 04/24/18 12:00 04/24/18 21:07 04/25/18 00:05 Temperature 36.6 C 37.1 C 36.5 C Pulse Rate 61 62 59 L Respiratory Rate 18 18 Blood Pressure 162/77 H 148/74 H 137/77 Pulse Oximetry 98 98 99 04/25/18 00:30 04/25/18 04:08 04/25/18 08:00 Temperature 37.4 C 37.0 C Pulse Rate 66 65 Respiratory Rate 18 Blood Pressure 169/77 H 149/75 H Pulse Oximetry 96 98 Intake & Output 04/24/18 04/25/18 04/25/18 18:59 06:59 18:59 Intake Total 400 / 400 360 / 360 Output Total 500 / 500 Balance -100 / -100 360 / 360 Weight 65.77 kg Intake: Oral 400 / 400 360 / 360 Output: Urine 500 / 500 Other: # Voids 2 2 # Incontinent Voids 4 Date of Last Bowel Movement 04/23/18 04/23/18 # Bowel Movements 1 1 Narrative: GENERAL: This is a well-nourished, well-developed patient, in no apparent distress. SKIN: Warm and dry. HEENT: Normocephalic. Pupils equal round and reactive. Nose without bleeding. Airway patent. NECK: Trachea midline. CARDIOVASCULAR: Regular rate and rhythm without murmurs, gallops, or rubs. RESPIRATORY: Clear to auscultation. Breath sounds equal bilaterally. No wheezes , rales, or rhonchi. GASTROINTESTINAL: Abdomen soft, nontender, nondistended. Bowel Sounds normoactive x4. MUSCULOSKELETAL: Extremities without clubbing, cyanosis, or edema. NEUROLOGICAL: Awake and alert. Oriented to person, place, and current president. Moves all extremities. Speech is clear. - Urinary Catheter Management Straight Cath placed during this visit: yes Reason for continuing: Not indwelling catheter Insertion date: 04/22/18 Insertion time: 20:50 Results - Labs CBC & Chem 7: 04/23/18 07:39 04/25/18 05:38 Laboratory Results - last 24 hr 04/24/18 04/25/18 04/25/18 15:21 05:38 05:38 Sodium 145 Potassium 3.4 L Chloride 114 H Carbon Dioxide 23.0 Anion Gap 8 BUN 22 H Creatinine 1.11 Estimated GFR 66 L Random Glucose 90 Calcium 10.9 H D PTH Intact 114.1 H [place] 0.6 - Imaging Impressions Head MRI 04/24/18 00:00 CONCLUSION: 1. Moderate central and cortical atrophy with periventricular white matter changes. 2. 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 Encephalopathy: likely multifactorial-acute dehydration/medication/progression of underlying ca. -CT Head w/ no acute findings -Neuro checks. Patient out of restraints today. -Continue Seroquel BID, Ativan/ Haldol PRN -Speech is clear. ALYSHA: Creatinine 1.45, previously 0.85 on 01/20/18 Hypokalemia -U/a negative for UTI -continue IVF for hydration -Improved SALESMAN/OWNER improved, this morning 1.11 -P.o. replacement provided, check labs tomorrow Hypercalcemia: Ca 11.7 -secondary to dehydration from decreased PO intake. -IVF for hydration -Improved Ca11.7 -->11.5-->10.9 -Recheck BMP tomorrow Oropharyngeal CA: Per review of records, Daughter states "cancer went away", s/ p chemo/radiation w/ Dr. De Paz in [facility] and Dr. Walton, had PET scan this past Tuesday however daughter unsure if scan completed due to pt's AMS. -Previously on Hospice, however Daughter took him off 1wk ago, wants aggressive treatment, states "he wants to live". -Oncology consulted for further recommendations, appreciate assistance. -MRI of the brain completed 04/24 with moderate central and cortical atrophy with periventricular white matter changes. 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 -Consult placed for palliative care to try and establish goals. Spoke with Rudo FRONT END MANAGER for palliative care, recommends psychiatry consult to establish patient' s capacity for decision making. -Consult for psychiatry placed, known to -Complaints of jaw pain, [place] p.o. as needed Bipolar Disorder: [place] supratherapeutic at 1.8, on hold. -Repeat lithium levels 0.6. -Mentation improved DVT Prophylaxis: SCD/Teds Discussed Condition With: Patient palliative care FRONT END MANAGER, and nurse. Discharge Planning: Palliative care consulted to assist with long-term goals, possible D/C back to [facility] and rehab versus hospice.
--- NOTE | 2018-04-25 16:09 | P.CONPAL ---
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 combined time spent today by collaborating physician/nurse practitioner.
--- NOTE | 2018-04-25 19:07 | P.PN ---
Subjective Interval history: remains confused and agitated says he wants to go home no family member present at bedside Physical Exam Vital signs: Vital Signs 04/24/18 21:07 04/25/18 00:05 04/25/18 00:30 Temperature 98.7 F 97.7 F Pulse Rate 62 59 L Respiratory Rate 18 18 15 Blood Pressure 148/74 H 137/77 Pulse Oximetry 98 99 04/25/18 04:08 04/25/18 08:00 04/25/18 12:00 Temperature 99.3 F 98.6 F 98.4 F Pulse Rate 66 65 65 Respiratory Rate 18 18 18 Blood Pressure 169/77 H 149/75 H 122/74 Pulse Oximetry 96 98 98 Intake & Output 04/25/18 04/25/18 04/26/18 06:59 18:59 06:59 Intake Total 360 / 360 900 / 900 Output Total 400 / 400 Balance 360 / 360 500 / 500 Weight 65.77 kg Intake: Oral 360 / 360 900 / 900 Output: Urine 400 / 400 Other: # Voids 2 3 # Incontinent Voids 4 Date of Last Bowel Movement 04/23/18 # Bowel Movements 1 - Constitutional cachectic, chronically ill appearing Comments: confused, agitated - Routine HEENT Exam Head: Present: normocephalic - Routine Respiratory Exam Present: CTA bilaterally - Routine Cardiovascular Exam Present: RRR, S1, S2 - Routine Abdominal Exam Present: soft, normoactive bowel sounds - Routine Extremities Exam Present: pulses intact, normal capillary refill - Urinary Catheter Management Straight Cath placed during this visit: yes Reason for continuing: Not indwelling catheter Insertion date: 04/22/18 Insertion time: 20:50 Results - Labs CBC & Chem 7: 04/23/18 07:39 04/25/18 05:38 Laboratory Results - last 24 hr 04/25/18 04/25/18 05:38 05:38 Sodium 145 Potassium 3.4 L Chloride 114 H Carbon Dioxide 23.0 Anion Gap 8 BUN 22 H Creatinine 1.11 Estimated GFR 66 L Random Glucose 90 Calcium 10.9 H D PTH Intact 114.1 H Assessment and Plan - Assessment (1) Altered mental status Code(s): R41.82 - Altered mental status, unspecified Status: Acute (2) Hypercalcemia Code(s): E83.52 - Hypercalcemia Status: Acute (3) ALYSHA (acute kidney injury) Code(s): N17.9 - Acute kidney failure, unspecified Status: Acute (4) Encephalopathy Code(s): G93.40 - Encephalopathy, unspecified Status: Acute (5) Oropharyngeal cancer Code(s): C10.9 - Malignant neoplasm of oropharynx, unspecified Status: Acute (6) Bipolar disorder Code(s): F31.9 - Bipolar disorder, unspecified Status: Acute (7) Status post radiation therapy Code(s): Z92.3 - Personal history of irradiation Status: Acute - Plan This is a 68-year-old male who has a history of oropharyngeal cancer he has undergone concurrent chemotherapy and radiation treatments. He had a decline in his performance status and he was placed on hospice. He was taken off the hospice approximately 1 week ago. He has been becoming increasingly confused and agitated. He was brought to the emergency room. #1 acute encephalopathy likely due metabolic reasons. Patient has hypercalcemia. He also has acute kidney injury. Possibly medication effect vs Progressive disease. CT of the head was negative. MRI negative Daily calcitonin. Continue IV hydration. Will IV pamidronate US parathyroid thyroid #2 history of locally advanced oropharyngeal cancer status post concurrent chemotherapy and radiation treatments. Overall poor PFS. Palliative care should be consulted to address goals of care and possible transition to hospice #3 acute kidney injury likely prerenal, IV hydration. Consider abdominal ultrasound to rule out any obstruction. (1) Altered mental status Qualifiers: Altered mental status type: unspecified Qualified Code(s): R41.82 - Altered mental status, unspecified
--- NOTE | 2018-04-25 23:56 | P.PN ---
Physical Exam Vital signs: Vital Signs 04/25/18 00:05 04/25/18 00:30 04/25/18 04:08 Temperature 97.7 F 99.3 F Pulse Rate 59 L 66 Respiratory Rate 18 15 18 Blood Pressure 137/77 169/77 H Pulse Oximetry 99 96 04/25/18 08:00 04/25/18 12:00 04/25/18 16:00 Temperature 98.6 F 98.4 F 97.9 F Pulse Rate 65 65 Respiratory Rate 18 18 18 Blood Pressure 149/75 H 122/74 146/78 H Pulse Oximetry 98 98 62 L 04/25/18 20:00 Temperature 98.5 F Pulse Rate 61 Respiratory Rate 18 Blood Pressure 139/75 Pulse Oximetry 100 Intake & Output 04/25/18 04/25/18 04/26/18 06:59 18:59 06:59 Intake Total 360 / 360 900 / 900 Output Total 400 / 400 Balance 360 / 360 500 / 500 Weight 65.77 kg Intake: Oral 360 / 360 900 / 900 Output: Urine 400 / 400 Other: # Voids 2 3 # Incontinent Voids 4 Date of Last Bowel Movement 04/23/18 # Bowel Movements 1 - Urinary Catheter Management Straight Cath placed during this visit: yes Reason for continuing: Not indwelling catheter Insertion date: 04/22/18 Insertion time: 20:50 Results - Labs CBC & Chem 7: 04/23/18 07:39 04/25/18 05:38 Laboratory Results - last 24 hr 04/25/18 04/25/18 05:38 05:38 Sodium 145 Potassium 3.4 L Chloride 114 H Carbon Dioxide 23.0 Anion Gap 8 BUN 22 H Creatinine 1.11 Estimated GFR 66 L Random Glucose 90 Calcium 10.9 H D PTH Intact 114.1 H Assessment and Plan - Assessment (1) Altered mental status Code(s): R41.82 - Altered mental status, unspecified Status: Acute (2) Hypercalcemia Code(s): E83.52 - Hypercalcemia Status: Acute (3) ALYSHA (acute kidney injury) Code(s): N17.9 - Acute kidney failure, unspecified Status: Acute (4) Encephalopathy Code(s): G93.40 - Encephalopathy, unspecified Status: Acute (5) Oropharyngeal cancer Code(s): C10.9 - Malignant neoplasm of oropharynx, unspecified Status: Acute (6) Bipolar disorder Code(s): F31.9 - Bipolar disorder, unspecified Status: Acute (7) Status post radiation therapy Code(s): Z92.3 - Personal history of irradiation Status: Acute - Plan This is a 68-year-old male who has a history of oropharyngeal cancer he has undergone concurrent chemotherapy and radiation treatments. He had a decline in his performance status and he was placed on hospice. He was taken off the hospice approximately 1 week ago. He has been becoming increasingly confused and agitated. He was brought to the emergency room. #1 acute encephalopathy likely due metabolic reasons. Patient has hypercalcemia. He also has acute kidney injury. Possibly medication effect vs Progressive disease. CT of the head was negative. I would recommend obtaining an MRI of the brain to rule out any metastatic disease. Start calcitonin. Continue IV hydration We will consider giving pamidronate Obtain copy of the PET scan and notes from his oncologist. We will consider obtaining CT scans of the head and neck chest and abdomen and pelvis if the PET scan has not been completed. #2 history of locally advanced oropharyngeal cancer status post concurrent chemotherapy and radiation treatments. If he has progressive disease he is not a candidate for any further treatment due to poor PFS. Palliative care should be consulted to address goals of care and possible transition to hospice #3 acute kidney injury likely prerenal, IV hydration. Consider abdominal ultrasound to rule out any obstruction. (1) Altered mental status Qualifiers: Altered mental status type: unspecified Qualified Code(s): R41.82 - Altered mental status, unspecified
[2018-04-26] MEDS: buPROPion 150 MG 12 HR Tablet PO SCH ×2 (09:09→21:43)
[2018-04-26] MEDS: Senna/Docusate Sodium 8.6/50 MG Tablet PO SCH ×2 (09:09→21:43)
[2018-04-26] MEDS: QUEtiapine 25 MG Tablet PO SCH ×5 (09:09→18:09)
[2018-04-26] MEDS: Calcitonin Salmon Inj 400 UNIT/2 ML Vial SQ SCH (09:10)
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
--- NOTE | 2018-04-26 09:23 | US ---
EXAM DATE: 04/26/2018 8:27 AM EDT AGE/SEX: 68 years / Male INDICATIONS: Elevated pTH and calcium. Abnormal soft tissue neck CT demonstrating a multinodular thy roid. CLINICAL DATA: This is the patient's initial encounter. Patient reports that signs and symptoms have been present for 1 day and indicates a pain score of 0/10. MEDICAL/SURGICAL HISTORY: Hepatitis C. Hypothyroidism. Carcinoma, thyroid. Anorexia. Anxiety . Bipolar disorder. Depression. HTN. Oropharyngeal cancer. Tonsillectomy. Vasectomy. Radiation thera py. COMPARISON: [facility], CT SOFT TISSUE NECK W/ CONTRAST, 02/24/2018. . MEASUREMENTS: Right Lobe: 4.5 x 2.4 x 2.4 cm Left Lobe: 4.1 x 1.5 x 2.2 cm FINDINGS: Right Lobe: The right lobe of the thyroid is prominent and contains a 2.7 x 2.0 x 2.4 cm heterogeneo us solid nodule in the mid gland with surrounding increased color flow and internal color flow. There is a second solid nodule in the lower pole measuring 1 x 1.1 x 1.0 cm which also demonstrates surrou nding increased color flow. Left Lobe: The left lobe is at the upper limits of normal in size and contains a 1 x 0.4 x 0.6 solid nodule in the lower pole, a 1 x 0.5 x 2.7 cm complex nodule in the upper pole and a 9 x 8 x 9 mm zac d urgings nodule in the mid gland. Isthmus: Normal in size without focal abnormality. Other: None. CONCLUSION: 1. Multinodular gland with dominant solid nodule in the right lobe. This would be amenable to ultras ound-guided core biopsy. Electronically signed by: Willian Echols MD 04/26/2018 9:21 AM EDT
[2018-04-26 10:09] LABS: Carbon Dioxide 22.3 meq/L (21.0-32.0); Potassium 3.6 meq/L (3.5-5.1)
--- NOTE | 2018-04-26 13:16 | P.PN ---
Subjective Interval history: Follow-up visit history of oropharyngeal cancer, encephalopathy, acute kidney injury. Patient is seen and examined sitting in bed eating lunch this afternoon , appears to be in no acute distress. He does complain of some jaw pain and states that he had cancer before. He denies any fevers, chills, nausea, vomiting, diarrhea, cough or shortness of breath. Physical Exam Vital signs: Vital Signs 04/25/18 16:00 04/25/18 20:00 04/26/18 00:00 Temperature 36.6 C 36.9 C 36.6 C Pulse Rate 61 70 Respiratory Rate 18 18 18 Blood Pressure 146/78 H 139/75 138/73 Pulse Oximetry 62 L 100 99 04/26/18 08:00 Temperature 37.1 C Pulse Rate 62 Respiratory Rate 17 Blood Pressure 126/71 Pulse Oximetry 98 Intake & Output 04/25/18 04/26/18 04/26/18 18:59 06:59 18:59 Intake Total 900 / 900 600 / 600 Output Total 400 / 400 Balance 500 / 500 600 / 600 Weight 65 kg Intake: Oral 900 / 900 600 / 600 Output: Urine 400 / 400 Other: # Voids 3 3 Date of Last Bowel Movement 04/23/18 04/24/18 Narrative: GENERAL: This is a well-nourished, well-developed patient, in no apparent distress. SKIN: Warm and dry. HEENT: Normocephalic. Pupils equal round. Nose without bleeding. Airway patent. NECK: Trachea midline. CARDIOVASCULAR: Regular rate and rhythm without murmurs, gallops, or rubs. RESPIRATORY: Clear to auscultation. Breath sounds equal bilaterally. No wheezes , rales, or rhonchi. GASTROINTESTINAL: Abdomen soft, nontender, nondistended. Bowel Sounds normoactive x4. MUSCULOSKELETAL: Extremities without clubbing, cyanosis, or edema. NEUROLOGICAL: Awake and alert. Oriented to person, place, and current president. Moves all extremities. Speech is clear. - Urinary Catheter Management Straight Cath placed during this visit: yes Reason for continuing: Not indwelling catheter Insertion date: 04/22/18 Insertion time: 20:50 Results - Labs CBC & Chem 7: 04/23/18 07:39 04/26/18 08:49 Laboratory Results - last 24 hr 04/26/18 08:49 Sodium 144 Potassium 3.6 Chloride 114 H Carbon Dioxide 22.3 Anion Gap 8 BUN 17 Creatinine 0.95 Estimated GFR 79 L Random Glucose 103 Calcium 10.0 D - Imaging Impressions Thyroid Ultrasound 04/26/18 00:00 CONCLUSION: 1. Multinodular gland with dominant solid nodule in the right lobe. This would be amenable to ultrasound-guided core biopsy. Assessment and Plan - Assessment (1) Encephalopathy Code(s): G93.40 - Encephalopathy, unspecified Status: Acute (2) Oropharyngeal cancer Code(s): C10.9 - Malignant neoplasm of oropharynx, unspecified Status: Acute (3) Bipolar disorder Code(s): F31.9 - Bipolar disorder, unspecified Status: Acute (4) Hypercalcemia Code(s): E83.52 - Hypercalcemia Status: Acute (5) ALYSHA (acute kidney injury) Code(s): N17.9 - Acute kidney failure, unspecified Status: Acute (6) Malnutrition Code(s): E46 - Unspecified protein-calorie malnutrition Status: Acute - Plan 68-year-old male with a PMH of Oropharyngeal CA and Bipolar Disorder who was sent to the ER for AMS. Encephalopathy: likely multifactorial-acute dehydration/medication/progression of underlying ca. -CT Head w/ no acute findings -Neuro checks. -Continue Seroquel scheduling adjusted by psychiatry, Ativan/ Haldol PRN -Speech is clear. ALYSHA: Creatinine 1.45, previously 0.85 on 01/20/18 Hypokalemia -U/a negative for UTI -continue IVF for hydration -Improved CRYSTAL EVALUATOR improved, this morning 1.11 -P.o. replacement provided, creatinine improved, electrolytes stable. Hypercalcemia: Ca 11.7 -secondary to dehydration from decreased PO intake. -Patient taking p.o. well, discontinue IV fluids -Improved Ca11.7 -->11.5-->10.9-->10.0 -Thyroid ultrasound showing multinodular gland with dominant solid nodule in the right lobe, radiologist recommends ultrasound-guided core biopsy. Oropharyngeal CA: Per review of records, Daughter states "cancer went away", s/ p chemo/radiation w/ Dr. De Paz in [facility] and Dr. Walton, had PET scan this past Tuesday however daughter unsure if scan completed due to pt's AMS. -Previously on Hospice, however Daughter took him off 1wk ago, wants aggressive treatment, states "he wants to live". -Oncology consulted for further recommendations, appreciate assistance. -MRI of the brain completed 04/24 with moderate central and cortical atrophy with periventricular white matter changes. 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 -Consult placed for palliative care to try and establish goals. -Consult for psychiatry placed, discussed with Dr. Orlando, restart Librium and adjust Seroquel dose. Patient without capacity to make decisions per -Complaints of jaw pain, [place] p.o. as needed Bipolar Disorder: Planada supratherapeutic at 1.8, on hold. -Repeat lithium levels 0.6. -Mentation improved, lithium restarted by psychiatry Malnutrition - Regular diet with Ensure shakes - Encourage p.o intake DVT Prophylaxis: SCD/Teds Discussed Condition With: Discussed with nurse, patient, Dr. Orlando, in director of casework. Discharge Planning: Daughter has chosen to enroll patient in hospice and take patient home. distribution manager working on arranging hospice since this will be out of town.
--- NOTE | 2018-04-26 14:39 | P.PNPAL ---
Reason for Visit Reason for visit: a. To assist with evaluation and management of symptoms including:altered mental status, physical deconditioning b. To assist medical decision maker(s) with: better understanding of current medical conditions; weighing benefits/burdens of medical treatment options; making medical treatment decisions. Subjective Subjective/Interval History: Follow-up medically necessary for symptom management and further clarification of goals. Patient seen and examined in his room. Patient is sitting up in bed eating lunch. Patient is only consumed approximately 50% of his lungs. Patient complaining of not being able to taste the food even though it was appealing in appearance. Patient states that he likes ensure because he can taste it. Patient complaining of having a headache and pain to his mandibles. Laboratory workup today revealing sodium 144, potassium 3.6, BUN/creatinine 17/ 0.95, calcium 10.0. Meeting with patient`s daughter Joshua Delarosa who is the Health Care Surrogate on 6N waiting room. Updated her on patient`s medical condition. Discussed concerns regarding patient`s current condition and multiple comorbidities. Expressed concerns that patient is at high risk for further complications and maybe deterioration. Patient will require close monitoring when medically discharged. Patient`s daughter Isaura mentioned that she has been discussing with her sister Violet who is willing to live with patient after he is medically discharged for a few weeks and then he will move in with Isaura. Readdressed code status and patient`s daughter stated that she thought through what patient has been through and would not want him to suffer. She changed patient`s code status to DNR. Discussed hospice philosophy and benefits. Patient `s daughter feels that patient responded well to chemo and radiation therapy and she feels that at this time he may not be ready for hospice. If patient continues to deteriorate and fails to thrive then she will consider transitioning patient to comfort care through hospice services. Family/Friend Interactions: Meeting with patient`s daughter Isaura. Advance Directives Health Care Surrogate: Copy in medical record Durable Power of Hunting Sales Associate: Copy in medical record Advance Directives Date on File: 07/20/17 Objective Vital Signs: Vital Signs 04/25/18 16:00 04/25/18 20:00 04/26/18 00:00 Temperature 97.9 F 98.5 F 98 F Pulse Rate 61 70 Respiratory Rate 18 18 18 Blood Pressure 146/78 H 139/75 138/73 Pulse Oximetry 62 L 100 99 04/26/18 08:00 04/26/18 12:00 Temperature 98.7 F 97.9 F Pulse Rate 62 69 Respiratory Rate 17 18 Blood Pressure 126/71 118/75 Pulse Oximetry 98 98 Intake & Output 04/25/18 04/26/18 04/26/18 18:59 06:59 18:59 Intake Total 900 / 900 600 / 600 Output Total 400 / 400 Balance 500 / 500 600 / 600 Weight 65 kg Intake: Oral 900 / 900 600 / 600 Output: Urine 400 / 400 Other: # Voids 3 3 Date of Last Bowel Movement 04/23/18 04/24/18 Physical Exam: CONSTITUTIONAL/GENERAL: This is a cachectic patient, who appears older than stated age, in no apparent distress. TUBES/LINES/DRAINS:PIV, [place] Left chest SKIN: No jaundice. Ecchymoses on upper extremities. No wounds seen anteriorly. Skin temperature appropriate. Not diaphoretic. HEAD: Atraumatic. Normocephalic. EYES: Pupils equal and round and reactive. No scleral icterus. No injection or drainage. Fundi not examined. ENT: Hearing grossly normal. Nose without bleeding or purulent drainage.Moist oral mucosa NECK: Trachea midline. Supple, nontender. CARDIOVASCULAR: Regular rate and rhythm without murmurs, gallops, or rubs. No JVD. Peripheral pulses symmetric. RESPIRATORY/CHEST: Symmetric, unlabored respirations. Clear to auscultation. Breath sounds equal bilaterally. No wheezes, rales, or rhonchi. GASTROINTESTINAL: Abdomen soft, non-tender, nondistended. No guarding. Bowel sounds present. GENITOURINARY: Without palpable bladder distension. MUSCULOSKELETAL: Extremities without clubbing, cyanosis, or edema. No mottling or clubbing. NEUROLOGICAL: Awake and alert, oriented to self, place with some confusion. Motor and sensory grossly within normal limits. Follows commands. Moves all extremities. PSYCHIATRIC: No obvious anxiety/depression. no apparent hallucinations or other psychotic thought process. Diagnostic Tests Laboratory: Laboratory Results - last 72 hr 04/23/18 04/24/18 04/24/18 07:39 05:00 15:21 Sodium 148 H Potassium 3.5 Chloride 118 H Carbon Dioxide 22.7 Anion Gap 7 BUN 26 H Creatinine 1.09 Estimated GFR 68 L Random Glucose 66 L Calcium 12.1 H* Prot Corrected Calcium 11.3 H Iron 63 L TIBC 237 L % Saturation 26.6 Ferritin 370 Total Bilirubin 0.6 AST 22 ALT 22 Alkaline Phosphatase 105 Total Protein 8.3 H D Albumin 4.3 Vitamin B12 1236 H Folate Greater than 20.0 H PTH Intact [place] 0.6 04/25/18 04/25/18 04/26/18 05:38 05:38 08:49 Sodium 145 144 Potassium 3.4 L 3.6 Chloride 114 H 114 H Carbon Dioxide 23.0 22.3 Anion Gap 8 8 BUN 22 H 17 Creatinine 1.11 0.95 Estimated GFR 66 L 79 L Random Glucose 90 103 Calcium 10.9 H D 10.0 D Prot Corrected Calcium Iron TIBC % Saturation Ferritin Total Bilirubin AST ALT Alkaline Phosphatase Total Protein Albumin Vitamin B12 Folate PTH Intact 114.1 H [place] Result Diagrams: 04/23/18 07:39 04/26/18 08:49 Imaging: Head CT 04/22/18 20:21 CONCLUSION: 1. Negative noncontrast head CT. Head MRI 04/24/18 00:00 CONCLUSION: 1. Moderate central and cortical atrophy with periventricular white matter changes. 2. 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 Thyroid Ultrasound 04/26/18 00:00 CONCLUSION: 1. Multinodular gland with dominant solid nodule in the right lobe. This would be amenable to ultrasound-guided core biopsy. Assessment and Plan - Disease Oriented Problem List (1) Encephalopathy (2) Hypercalcemia (3) Bipolar disorder (4) Status post radiation therapy Pertinent Non-Medical Issues: Psychosocial: Patient was born in [place]. He was raised in [place], [place]. Patient was and 3 times. Highest level of education is College. 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 He has 3 adult daughters. Spiritual:Patient is Adventist Legal:Patient has a Durable Power of Hunting Sales Associate Ethical issues impacting care:None identified at this time. Important Contacts: Isaura Lewis-[phone] Kiel Lewis (Brother) [phone] - Prognosis: Mr. Lewis is a [id number] male with a past medical history significant for oropharyngeal cancer with metastatic disease to the neck Stage YASMANY, Alzheimer's disease, bipolar disorder, hepatitis C s/p treatment and GERD. Patient was brought to the ER on 04/22/[address] [facility] and rehab for evaluation of altered mental status which has progressively getting worse over the past 1-2 weeks. Given ongoing comorbidities, patient remains at risk for further complications, deterioration and decline. Code Status: No Code DNR Plan: PLAN: Legal decision maker: Patient is alert and partially oriented.He appears not able to weigh benefits and burdens of treatment. Patient is currently not able to participate in medical decision. Patient`s durable power of monumental stonemason is his daughter Isaura Lewis who can make medical decisions for him Goals: Aggressive short of no code CODE STATUS: No Code DNR/DNI Meeting with patient`s daughter Joshua Delarosa who is the Health Care Surrogate on 6N waiting room. Updated her on patient`s medical condition. Discussed concerns regarding patient`s current condition and multiple comorbidities. Expressed concerns that patient is at high risk for further complications and maybe deterioration. Patient will require close monitoring when medically discharged. Patient`s daughter Isaura mentioned that she has been discussing with her sister Violet who is willing to live with patient after he is medically discharged for a few weeks and then he will move in with Isaura. Readdressed code status and patient`s daughter stated that she thought through what patient has been through and would not want him to suffer. She changed patient`s code status to DNR. Discussed hospice philosophy and benefits. Patient `s daughter feels that patient responded well to chemo and radiation therapy and she feels that at this time he may not be ready for hospice. If patient continues to deteriorate and fails to thrive then she will consider transitioning patient to comfort care through hospice services. SYMPTOMS: * Altered mental status: Patient has history of bipolar disorder, and oropharyngeal cancer s/p chemo and radiation therapy patient was brought into the ER for further evaluation of progressive altered mental status for the past 1-[address] and MRI brain was negative. Recent PET scan did not show progression of disease. * Pain: Patient has a history of oropharyngeal cancer and is s/p chemoradiation therapy. c/o pain to his mandibles and headache. Patient was started on Hydrocodone/acetaminophen 5/325 q 4 hrs prn. Patient has needed x4 prn doses for the past 24hrs. * Physical deconditioning: Progressive. And his history of oropharyngeal cancer and is s/p chemo and radiation therapy. Patient has lost approximately 50 pounds in 3 months time. Patient is cachectic. If goals remain aggressive, recommending physical therapy consultation. Palliative care will continue to follow the patient during hospital course as condition evolves, to assist patient/decision-maker with understanding of their medical conditions, weighing benefits/burdens of treatment options, for clarification of goals of treatment. Additionally will assist with any symptoms of palliative concern.
[2018-04-26] MEDS: Sodium Chloride 0.45 % Inj 1,000 ML IV.CONT SCH (15:32)
[2018-04-27] MEDS: Senna/Docusate Sodium 8.6/50 MG Tablet PO SCH ×2 (08:17→20:36)
[2018-04-27] MEDS: buPROPion 150 MG 12 HR Tablet PO SCH ×2 (08:17→20:36)
--- NOTE | 2018-04-27 11:07 | P.PNPAL ---
Reason for Visit Reason for visit: a. To assist with evaluation and management of symptoms including:altered mental status, physical deconditioning b. To assist medical decision maker(s) with: better understanding of current medical conditions; weighing benefits/burdens of medical treatment options; making medical treatment decisions. Subjective Subjective/Interval History: Follow-up medically necessary for further clarification of goals. Patient seen and examined in his room. Patient is in bed awake, somewhat restless today. Patient alert, oriented to self with confusion. Patient stating that something hit him in the back of his head and that is why he ended up in the hospital. Currently denying pain. Patient denies headache, jaw pain. Patient has consumed 100% of his breakfast and is happy that he is getting 2 ensures on his tray. Vital signs stable. Thyroid ultrasound on 04/26/18 revealed multinodular gland with dominant solid nodule in the right lobe. This would be amenable to ultrasound-guided core biopsy. Telephone conversation with patient`s daughter Isaura Lewis ([facility]). Updated her on patient`s medical condition. Patient`s daughter spoke to case management and she requested hospice services yesterday. Per Isaura, current plan is have patient discharged home with his other daughter Erika Lewis, who resides in [facility]). Expressed concern that with patient`s medical condition he most likely will benefit from [facility] care where he can be supervised most of the times. Patient`s daughter will discuss further with her sister after patient is discharged and decide what would be best for the patient. Case discussed with case management Yvette, and Nathaniel Menendez ARNP. Advance Directives Health Care Surrogate: Copy in medical record Durable Power of Sales Data Analyst: Copy in medical record Advance Directives Date on File: 07/20/17 Health Care Surrogate Name and Number: Isaura Lewis (daughter)[phone] Significant change in goals:: Family have decided to transition patient to comfort care through hospice services. Objective Vital Signs: Vital Signs 04/26/18 12:00 04/26/18 16:00 04/26/18 20:00 Temperature 97.9 F 97.6 F 98.3 F Pulse Rate 69 72 60 Respiratory Rate 18 Blood Pressure 118/75 133/64 110/58 L Pulse Oximetry 98 97 99 04/27/18 00:00 04/27/18 08:00 Temperature 98.1 F 97.6 F Pulse Rate 65 61 Respiratory Rate 17 18 Blood Pressure 110/66 127/73 Pulse Oximetry 96 100 Intake & Output 04/26/18 04/27/18 04/27/18 18:59 06:59 18:59 Intake Total 1800 / 1800 450 / 450 Output Total 450 / 450 750 / 750 Balance 1350 / 1350 -300 / -300 Weight 65 kg Intake: Oral 1800 / 1800 450 / 450 Output: Urine 450 / 450 750 / 750 Other: # Voids 2 Date of Last Bowel Movement 04/24/18 04/24/18 Physical Exam: CONSTITUTIONAL/GENERAL: This is a cachectic patient, who appears older than stated age, in no apparent distress. TUBES/LINES/DRAINS:PIV, [place] Left chest SKIN: No jaundice. Ecchymoses on upper extremities. No wounds seen anteriorly. Skin temperature appropriate. Not diaphoretic. EYES: Pupils equal and round and reactive. No scleral icterus. No injection or drainage. Fundi not examined. ENT: Hearing grossly normal. Nose without bleeding or purulent drainage.Moist oral mucosa CARDIOVASCULAR: Regular rate and rhythm without murmurs, gallops, or rubs. No JVD. Peripheral pulses symmetric. RESPIRATORY/CHEST: Symmetric, unlabored respirations. Clear to auscultation. Breath sounds equal bilaterally. No wheezes, rales, or rhonchi. GASTROINTESTINAL: Abdomen soft, non-tender, nondistended. No guarding. Bowel sounds present. MUSCULOSKELETAL: Extremities without clubbing, cyanosis, or edema. No mottling or clubbing. NEUROLOGICAL: Awake and alert, oriented to self, place with some confusion. Motor and sensory grossly within normal limits. Follows commands. Moves all extremities. PSYCHIATRIC: No obvious anxiety/depression. no apparent hallucinations or other psychotic thought process. Diagnostic Tests Laboratory: Laboratory Results - last 72 hr 04/24/18 04/25/18 04/25/18 15:21 05:38 05:38 Sodium 145 Potassium 3.4 L Chloride 114 H Carbon Dioxide 23.0 Anion Gap 8 BUN 22 H Creatinine 1.11 Estimated GFR 66 L Random Glucose 90 Calcium 10.9 H D PTH Intact 114.1 H [place] 0.6 04/26/18 08:49 Sodium 144 Potassium 3.6 Chloride 114 H Carbon Dioxide 22.3 Anion Gap 8 BUN 17 Creatinine 0.95 Estimated GFR 79 L Random Glucose 103 Calcium 10.0 D PTH Intact [place] Result Diagrams: 04/23/18 07:39 04/26/18 08:49 Imaging: Head CT 04/22/18 20:21 CONCLUSION: 1. Negative noncontrast head CT. Head MRI 04/24/18 00:00 CONCLUSION: 1. Moderate central and cortical atrophy with periventricular white matter changes. 2. 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 Thyroid Ultrasound 04/26/18 00:00 CONCLUSION: 1. Multinodular gland with dominant solid nodule in the right lobe. This would be amenable to ultrasound-guided core biopsy. Assessment and Plan - Disease Oriented Problem List (1) Encephalopathy (2) Hypercalcemia (3) Bipolar disorder (4) Status post radiation therapy Pertinent Non-Medical Issues: Psychosocial: Patient was born in [place]. He was raised in [place], [place]. Patient was and 3 times. Highest level of education is College. 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 He has 3 adult daughters. Spiritual:Patient is Buddhism Legal:Patient has a Durable Power of Sales Data Analyst Ethical issues impacting care:None identified at this time. Important Contacts: Isaura CardenasKyax-[phone] Kiel Lewis (Brother) [phone] Prognosis: Mr. Lewis is a [id number] male with a past medical history significant for oropharyngeal cancer with metastatic disease to the neck Stage YASMANY, Alzheimer's disease, bipolar disorder, hepatitis C s/p treatment and GERD. Patient was brought to the ER on 04/22/18 by [facility] from [facility] and rehab for evaluation of altered mental status which has progressively getting worse over the past 1-2 weeks. Given ongoing comorbidities, patient remains at risk for further complications, deterioration and decline. Code Status: No Code DNR Plan: PLAN: Legal decision maker: Patient is alert and partially oriented.He appears not able to weigh benefits and burdens of treatment. Patient is currently not able to participate in medical decision making and it is uncertain if he will ever regain capacity. Patient`s durable power of attorney lawyer is his daughter Isaura Lewis who can make medical decisions for him. Goals: Comfort care through hospice services CODE STATUS: No Code DNR/DNI- Community DNR signed. Telephone conversation with patient`s daughter Isaura Lewis ([facility]). Updated her on patient`s medical condition. Patient`s daughter spoke to case management and she requested hospice services yesterday. Per Isaura, current plan is have patient discharged home with his other daughter Erika Lewis, who resides in [facility]). Expressed concern that with patient`s medical condition he most likely will benefit from seed cleaning manager care where he can be supervised most of the times. Patient`s daughter will discuss further with her sister after patient is discharged and decide what would be best for the patient. SYMPTOMS: * Altered mental status: Patient has history of bipolar disorder, and oropharyngeal cancer s/p chemo and radiation therapy patient was brought into the ER for further evaluation of progressive altered mental status for the past 1-[address] and MRI brain was negative. Recent PET scan did not show progression of disease. Patient remains partially oriented. * Pain: Patient has a history of oropharyngeal cancer and is s/p chemoradiation therapy. c/o pain to his mandibles and headache. Patient is on Hydrocodone/ acetaminophen 5/325 q 4 hrs prn. * Physical deconditioning: Progressive. Patient has a history of oropharyngeal cancer and is s/p chemo and radiation therapy. Patient has lost approximately 50 pounds in 3 months time. Patient is cachectic. If goals remain aggressive, recommending physical therapy consultation. Palliative care will continue to follow the patient during hospital course as condition evolves, to assist patient/decision-maker with understanding of their medical conditions, weighing benefits/burdens of treatment options, for clarification of goals of treatment. Additionally will assist with any symptoms of palliative concern. Attestation Attestation: To help prompt me to consider important information that might be impacting today's encounter and assessment, information from prior notes written by myself or my colleagues may have been "brought forward" into today's note. My signature on this note, however, is an attestation that I personally performed the exam, history, and/or decision-making noted today, and, unless otherwise indicated, the interactions with patient, family, and staff as well as the review of records all occurred today. I also attest that the listed assessment and stated plan reflect my best clinical judgment today based on the combination of historical information, prior notes, and today's exam/ interactions. When time spent is documented, it refers only to time spent today by the signer, or if indicated, combined time spent today by collaborating physician/nurse practitioner.
[2018-04-27] MEDS: QUEtiapine 25 MG Tablet PO SCH ×3 (12:41→18:26)
--- NOTE | 2018-04-27 12:45 | P.PN ---
Subjective Interval history: Follow-up visit history of oropharyngeal cancer, encephalopathy, hypercalcemia and acute kidney injury. Patient is seen and examined resting in bed comfortably in no acute distress. Denies any cough, shortness of breath, headache, dizziness or pain. Spoke with nurse who reports no acute concerns. Plans for discharge home with hospice, case management assisting with hospice arrangements. Physical Exam Vital signs: Vital Signs 04/26/18 16:00 04/26/18 20:00 04/27/18 00:00 Temperature 36.4 C 36.8 C 36.7 C Pulse Rate 72 60 65 Respiratory Rate 18 18 17 Blood Pressure 133/64 110/58 L 110/66 Pulse Oximetry 97 99 96 04/27/18 08:00 04/27/18 12:00 Temperature 36.4 C 37.5 C Pulse Rate 61 69 Respiratory Rate 18 16 Blood Pressure 127/73 116/66 Pulse Oximetry 100 97 Intake & Output 04/26/18 04/27/18 04/27/18 18:59 06:59 18:59 Intake Total 1800 / 1800 450 / 450 Output Total 450 / 450 750 / 750 Balance 1350 / 1350 -300 / -300 Weight 65 kg Intake: Oral 1800 / 1800 450 / 450 Output: Urine 450 / 450 750 / 750 Other: # Voids 2 Date of Last Bowel Movement 04/24/18 04/24/18 Narrative: GENERAL: This is a well-nourished, well-developed patient, in no apparent distress. SKIN: Warm and dry. HEENT: Normocephalic. Pupils equal round. Nose without bleeding. Airway patent. NECK: Trachea midline. CARDIOVASCULAR: Regular rate and rhythm without murmurs, gallops, or rubs. RESPIRATORY: Clear to auscultation. Breath sounds equal bilaterally. No wheezes , rales, or rhonchi. GASTROINTESTINAL: Abdomen soft, nontender, nondistended. Bowel Sounds normoactive x4. MUSCULOSKELETAL: Extremities without clubbing, cyanosis, or edema. NEUROLOGICAL: Awake and alert. Oriented to person and place. Moves all extremities. Speech is clear. - Urinary Catheter Management Straight Cath placed during this visit: yes Reason for continuing: Not indwelling catheter Insertion date: 04/22/18 Insertion time: 20:50 Results - Labs CBC & Chem 7: 04/23/18 07:39 04/26/18 08:49 Assessment and Plan - Assessment (1) Encephalopathy Code(s): G93.40 - Encephalopathy, unspecified Status: Acute (2) Oropharyngeal cancer Code(s): C10.9 - Malignant neoplasm of oropharynx, unspecified Status: Acute (3) Bipolar disorder Code(s): F31.9 - Bipolar disorder, unspecified Status: Acute (4) Hypercalcemia Code(s): E83.52 - Hypercalcemia Status: Acute (5) ALYSHA (acute kidney injury) Code(s): N17.9 - Acute kidney failure, unspecified Status: Acute (6) Malnutrition Code(s): E46 - Unspecified protein-calorie malnutrition Status: Acute - Plan 68-year-old male with a PMH of Oropharyngeal CA and Bipolar Disorder who was sent to the ER for AMS. Encephalopathy: likely multifactorial-acute dehydration/medication/progression of underlying ca. -CT Head w/ no acute findings -Continue Seroquel, Ativan/ Haldol PRN -Speech is clear. ALYSHA: Creatinine 1.45, previously 0.85 on 01/20/18 Hypokalemia -U/a negative for UTI -continue IVF for hydration -Improved DREDGE [place]AND improved, this morning 1.11 -P.o. replacement provided, creatinine improved, electrolytes stable. Hypercalcemia: Ca 11.7 -secondary to dehydration from decreased PO intake. -Patient taking p.o. well, discontinue IV fluids -Improved Ca11.7 -->11.5-->10.9-->10.0 -Thyroid ultrasound showing multinodular gland with dominant solid nodule in the right lobe, radiologist recommends ultrasound-guided core biopsy. Oropharyngeal CA: Per review of records, Daughter states "cancer went away", s/ p chemo/radiation w/ Dr. De Paz in [facility] and Dr. Walton, had PET scan this past Tuesday however daughter unsure if scan completed due to pt's AMS. -Previously on Hospice, however Daughter took him off 1wk ago, wants aggressive treatment, states "he wants to live". -Oncology consulted for further recommendations, appreciate assistance. -MRI of the brain completed 04/24 with moderate central and cortical atrophy with periventricular white matter changes. 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 -Consult for psychiatry placed, patient without capacity to make decisions. Restarted on Librium along with Seroquel. -[place] p.o. as needed -Palliative care following, plan is to DC home with hospice. Patient to be DC with oldest daughter who lives in [place]. Case management assisting with arrangements of hospice out of the [facility]. Bipolar Disorder: [place] supratherapeutic at 1.8-->0.6 -Restated on Librium by psych. Malnutrition - Regular diet with Ensure shakes - Encourage p.o intake DVT Prophylaxis: SCD/Teds Discussed Condition With: patient, nurse and CM. Discharge Planning: Daughter has chosen to enroll patient in hospice and take patient home. studio operations manager working on arranging hospice since this will be out of town.
--- NOTE | 2018-04-28 08:48 | P.DS ---
Date of admission: 04/24/18 16:15 Primary care physician: Colin Mcgarry MD Attending physician on discharge: James Hameed Anticipated date of discharge: 04/28/18 Brief History from admission: This is a 68-year-old male with a PMH of Oropharyngeal CA and Bipolar Disorder who was sent to the ER for AMS. Pt unable to provide any history. History obtained from patient's Daughter at bedside. Daughter states pt is following w / Dr. De Paz in [facility] and Dr. Walton, is s/p chemo/radiation, was sent to Rehab after last admission "to recover". Per Daughter pt had previously refused PEG tube placement and was transiently placed on Hospice, however Daughter states she took him off of Hospice 1wk ago because "he wants to live". Per Daughter pt had PET scan on Tuesday but believes he was unable to complete it due to AMS. Daughter notes decreased PO intake and worsening confusion for the last several days. Concerned that he is being overmedicated. On arrival, BP 168/72, HR 68, O2 sat 98% on RA, Temp 99.0. CBC essentially unremarkable. INR 1.1. Chemistry unremarkable except for creatinine 1.45, PVCs 0.80 on 01/20/2018. Calcium 11.7. UA with trace LE, mild bacteriuria. Urine Drug Screen negative. [place] 1.8. CT Head with no acute findings. While in ER pt remains confused, attempting to get out of bed. DS: Diagnosis - Discharge Diagnosis (1) Encephalopathy Status: Acute (2) Oropharyngeal cancer Status: Acute (3) Bipolar disorder Status: Acute (4) Hypercalcemia Status: Acute (5) ALYSHA (acute kidney injury) Status: Acute (6) Malnutrition Status: Acute DS: Medications - Discharge Medications Prescriptions: bupropion HCl [Wellbutrin SR] 150 mg PO BID #60 tab hydrocodone-acetaminophen 1 tab PO Q4H PRN #12 tab PRN Reason: Pain 3-10 lithium carbonate 300 mg PO BID 5 Days #10 cap DS: Summary Hospital Course: Mr. Lewis is a 68-year-old male with a past medical history significant for oropharyngeal cancer status post chemo and radiation, and bipolar disorder who presented to the emergency department on 04/22 due to altered mental status. Patient had apparently been refusing PEG tube placement and was placed on hospice however daughter had removed him from hospice about a week ago prior to presenting to the emergency department. On presentation head CT was done with no acute findings, significant hypercalcemia with calcium level of 11.7 and lithium level at 1.8. Labs also revealed acute kidney injury with creatinine 1.45 and a UA which was negative for UTI. Patient was started on Seroquel as well as as needed Ativan and Haldol. Oncology services were consulted for further recommendations, seen and evaluated by who began treatment for hypercalcemia with pamidronate. Oncology services believed patient had poor prognosis and recommended consultation with palliative care. Psych was consulted and evaluated patient who determined he was not competent to make medical decisions. Palliative care services were consulted and goals were discussed with daughter. Daughter opted to transition patient to DNR and plans were made for discharge home with hospice. Patient will be discharged home with eldest daughter who lives in [place], rn field case manager has arranged hospice services in that [facility] for ongoing follow-up. Patient is seen and examined this morning sitting up in bed eating breakfast. He denies any pain or discomfort, nurse reports no acute events overnight. - Time Spent with Patient Total time spent providing and/or coordinating discharge services: Less than 30 minutes - Quality: VTE Deep Vein Thrombosis/Pulmonary Embolism Present on Admission: No Exam Vital signs: Vital Signs 04/27/18 12:00 04/27/18 16:00 04/27/18 20:00 Temperature 37.5 C 36.8 C 37.2 C Pulse Rate 69 68 63 Respiratory Rate 16 17 16 Blood Pressure 116/66 103/54 L 107/60 Pulse Oximetry 97 96 98 04/28/18 00:00 04/28/18 01:16 Temperature 37.1 C Pulse Rate 62 Respiratory Rate 16 16 Blood Pressure 122/68 Pulse Oximetry 98 Intake & Output 04/27/18 04/28/18 04/28/18 18:59 06:59 18:59 Intake Total 1800 / 1800 240 / 240 Output Total / Balance 1800 / 1800 234 / 234 Intake: Oral 1800 / 1800 240 / 240 Output: Urine Other: # Voids 10 Date of Last Bowel Movement 04/24/18 # Bowel Movements 0 Narrative: GENERAL: This is a well-nourished, well-developed patient, in no apparent distress. SKIN: Warm and dry. HEENT: Normocephalic. Pupils equal round. Nose without bleeding. Airway patent. NECK: Trachea midline. CARDIOVASCULAR: Regular rate and rhythm without murmurs, gallops, or rubs. RESPIRATORY: Clear to auscultation. Breath sounds equal bilaterally. No wheezes , rales, or rhonchi. GASTROINTESTINAL: Abdomen soft, nontender, nondistended. Bowel Sounds normoactive x4. MUSCULOSKELETAL: Extremities without clubbing, cyanosis, or edema. NEUROLOGICAL: Awake and alert. Oriented to person. Moves all extremities. Speech is clear. Results Procedures completed during hospitalization: None - Impressions ITS Impressions Head CT 04/22/18 20:21 CONCLUSION: 1. Negative noncontrast head CT. Head MRI 04/24/18 00:00 CONCLUSION: 1. Moderate central and cortical atrophy with periventricular white matter changes. 2. 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 Thyroid Ultrasound 04/26/18 00:00 CONCLUSION: 1. Multinodular gland with dominant solid nodule in the right lobe. This would be amenable to ultrasound-guided core biopsy. Discharge Plan - Discharge Disposition Patient Disposition: 50 Hospice/Home - Discharge Condition Condition: Stable - Discharge Order Discharge Orders: Discharge Order (Routine); Ordered 04/26/18 Ordered By: Shon Armstrong - Discharge Details Anticipated Discharge Date: 04/28/18 - Physicians Team Primary Care Provider: Colin Mcgarry Attending Provider: James Hameed Other Providers: Mino Barajas MD ; Cesar Rois MD ; Tahir Orlando MD
[2018-04-28] MEDS: buPROPion 150 MG 12 HR Tablet PO SCH (08:59)
[2018-04-28] MEDS: Senna/Docusate Sodium 8.6/50 MG Tablet PO SCH (08:59)
[2018-04-28] MEDS: QUEtiapine 25 MG Tablet PO SCH (10:52)
[2018-04-28 12:08] VITALS: BP 130/66; PULSE 57; RESP 17; TEMP 98.4; O2SAT 99
== END 2018-04-28 14:14 | disposition hospice, home (50) ==
LOC: NEPE 19:25 → NEDA 19:25 → N06 04-23 03:05
PROVIDERS: ADMIT Internal Medicine; ATTEND Internal Medicine